=== PATIENT | female | born 1945 | race Hispanic/Latino ===

== ENCOUNTER 2018-02-15 14:12 | Observation (INO) | payer MEDICARE, BC ==
[2018-02-15] MEDS ORDERED: DiphenhydrAMINE 12.5 mg/5 ml LIQ UD (5 ml) ONE (14:33)
[2018-02-15] MEDS ORDERED: Sodium Chloride 0.9% 1,000 ML IV STA (14:34)
--- NOTE | 2018-02-15 14:44 | ED PDOC ---
HPI: General Adult Time Seen by Provider: 02/15/18 14:22 Chief Complaint (Nursing): Psychiatric Evaluation Chief Complaint (Provider): Screaming in pain History/Exam Limitations: clinical condition Onset/Duration Of Symptoms: Days (2) Additional Complaint(s): Per [facility], pt. sent to the ER for evaluation as she has been screaming for help and decreased appetite for 2 days. Unclear of pt. baseline. Pt. currently not providing any history. Only responds appropriately to some commands with 1 word answers. Pt. denies chest pain, dyspnea, back pain, headaches, neck pain. Has abd pain. States pain in the legs possibly at hips? . Past Medical History Reviewed: Nursing Documentation, Vital Signs Vital Signs: Last Vital Signs Temp 98 F 02/15/18 14:19 Pulse 71 02/15/18 14:19 Resp 18 02/15/18 14:19 BP 106/70 02/15/18 14:19 Pulse Ox 98 02/15/18 18:21 - Medical History PMH: Depression, HTN, Hypercholesterolemia Other PMH: Aortic aneursym and rupture - Family History Family History: States: Unknown Family Hx - Living Arrangements Living Arrangements: Prison/Assist Lv - Home Medications Home Medications: Ambulatory Orders Medication Instructions Recorded Acetaminophen [Tylenol 325mg tab] 650 mg PO Q6 PRN 02/15/18 Acidoph/L.bulg/Bif.b/S.thermop 2 tab PO BID 02/15/18 [Vicky-Bid Caplet] Aspirin [Adult Low Dose Aspirin EC] 81 mg PO DAILY 02/15/18 Atorvastatin [Lipitor] 10 mg PO HS 02/15/18 Bisacodyl [Dulcolax] 10 mg AZ DAILY PRN 02/15/18 Cholecalciferol 400 Intl Units 400 units PO DAILY 02/15/18 [Vitamin D 400 Intl Units Tab] Clopidogrel [Plavix] 75 mg PO DAILY 02/15/18 Diltiazem HCl [Cardizem] 30 mg PO Q6 02/15/18 Docusate [Colace] 100 mg PO BID 02/15/18 Famotidine [Pepcid] 20 mg PO BID 02/15/18 Lidocaine [Anecream] 1 applic TOP Q8 PRN 02/15/18 Magnesium Hydroxide [Milk of 30 ml PO DAILY PRN 02/15/18 Magnesia] Mirtazapine [Remeron] 15 mg PO HS 02/15/18 Risperidone [Risperdal] 0.25 mg PO BID 02/15/18 Sod Phos,M-B/Na Phos,Di-Ba [Fleet 118 ml AZ DAILY 02/15/18 Enema] clonazePAM [Klonopin] 0.25 mg PO Q12 02/15/18 guaiFENesin/Dextromethorphan 10 ml PO Q6 PRN 02/15/18 [Robitussin DM] levETIRAcetam [Keppra] 500 mg PO Q12 02/15/18 - Allergies Allergies/Adverse Reactions: Allergies Allergy/AdvReac Type Severity Reaction Status Date / Time latex Allergy RASH Verified 02/15/18 14:19 morphine Allergy RASH Verified 02/15/18 14:19 oxycodone Allergy RASH Verified 02/15/18 14:19 Review of Systems Review Of Systems: ROS cannot be obtained secondary to pt's inabilty to answer questions. Physical Exam - Reviewed Nursing Documentation Reviewed: Yes Vital Signs Reviewed: Yes - Physical Exam Appears: Positive for: No Acute Distress Head Exam: Positive for: ATRAUMATIC, NORMAL INSPECTION, NORMOCEPHALIC Skin: Positive for: Warm Eye Exam: Positive for: PERRL. Negative for: Periorbital swelling ENT: Positive for: Other (dry mouth). Negative for: Nasal Congestion, Tonsillar Exudate Neck: Positive for: Trachea Midline. Negative for: Normal (L neck with 7cm diameter echymotic area with minimal tenderness) Cardiovascular/Chest: Positive for: Regular Rate, Rhythm, Chest Non Tender. Negative for: Edema Respiratory: Positive for: Normal Breath Sounds. Negative for: Respiratory Distress Gastrointestinal/Abdominal: Positive for: Soft, Tenderness (diffuse), Other ( scattered echymotic spots (nontender)) Back: Positive for: Other (scattered echymotic spots (nontender)). Negative for : L CVA Tenderness, R CVA Tenderness Extremity: Positive for: Other (scattered echymotic spots (nontender) arms and legs; limited ROM as pt. with pain at the hips b/l) Neurologic/Psych: Positive for: Alert, Other (limited exam; answers only limited questions; follows limited commands) - Laboratory Results Result Diagrams: 02/15/18 14:55 02/15/18 14:55 Interpretation Of Abn Labs: 3.2 k, urine wbc Urine dip results: Positive for: Leukocyte Esterase, Nitrate - ECG ECG: Positive for: Interpreted By Me, Viewed By Me ECG Rhythm: Positive for: Atrial Fibrillation (unclear if old; rate controlled) O2 Sat by Pulse Oximetry: 98 Pulse Ox Interpretation: Normal - Radiology X-Ray: Read By Radiologist X-Ray Interpretation: No Acute Disease - CT Scan/US ct Other Rad Studies (CT/US): Read By Radiologist Other Rad Interpretation: cervical with few bubbles in epidural space - Progress ED Course And Treament: 1651: Does not meet sepsis criteria. Will give potassium and IV antibiotics for uti. 1829: Stable. Spoke with Dr. Josue about air in epidural. He reviewed images and aware of presentation. Nothing to do about findings. Possible from IV air bubble vs. trauma. Spoke with Dr. Langley. Will admit tele. Will give further orders when pt. reaches floor. IMPRESSION: There is a small amount of fluid adjacent to the aortic arch and pulmonary trunk nonspecific. Mild atelectasis/scarring changes right lung base with mild passive/dependent type atelectasis both lung bases. Status post endovascular repair large infrarenal abdominal aortic aneurysm as above. Large parapelvic cyst left kidney of with a exophytic cyst arising from the medial aspect midpole left kidney. Large right-sided extrarenal pelvis. Smaller right-sided renal cysts. Bilateral calcifications both collecting systems some of which may be vascular in origin. In situ G[employer] shunt tube. There is a small a right parasagittal ventral wall hernia containing fat. The distal end of the G[employer] EXEC[employer]IVE shunt tube also traverses the subcutaneous tissues and enters the peritoneal cavity at this level. There is a large lobulated soft tissue mass density within the pelvis that contains eccentric focal areas of air of uncertain etiology. Clinical correlation recommended. . Urinary bladder abuts this large lobulated soft tissue mass lesion and its relationship is difficult to determine due to significant streak and beam hardening artifact arising from bilateral total hip replacements. It is unclear within this lesion on arises from the uterus or there has been hysterectomy and again did streak limits cysts anatomic location. Follow-up of pelvic ultrasound is recommended further evaluation Findings discussed with Dr. Barrett at approximately 5:30 p.m. with written down and read back verification. US: Fibroids. Disposition - Clinical Impression Clinical Impression: UTI (urinary tract infection), Confused, Pelvic mass, Afib, Hypokalemia - Patient ED Disposition Is Patient to be Admitted: Yes - Disposition Disposition Time: 18:00 Condition: FAIR - Pt Status Changed To: Hospital Disposition Of: Inpatient - Admit Certification Admit to Inpatient:: After my assessment, the patient will require hospitalization for at least two midnights. This is because of the severity of symptoms shown, intensity of services needed, and/or the medical risk in this patient being treated as an outpatient. - POA Present On Arrival: Falls Or Trauma
[2018-02-15 14:59] LABS: VENOUS BLOOD GAS BASE EXCESS 0.8 mmol/L (0.0-2.0); VENOUS BLOOD GAS PCO2 34 mmHg (40-60); VENOUS BLOOD GAS PO2 48 mm/Hg (30-55); VENOUS BLOOD PH 7.46 (7.32-7.43)
[2018-02-15 15:09] LABS: EOS # 0.1 K/uL (0.0-0.7); EOS % 2.6 % (0.0-4.0); HEMOGLOBIN 12.5 g/dL (12.0-16.0); LYMPH # 1.5 K/uL (1.0-4.3); LYMPH % 30.4 % (20.0-40.0); MEAN CELL VOLUME 93.3 fl (81.0-99.0); MEAN CORPUSCULAR HEMOGLOBIN 30.7 pg (27.0-31.0); MEAN CORPUSCULAR HGB CONC 32.9 g/dL (33.0-37.0); MEAN PLATELET VOLUME 7.4 fl (7.2-11.7); MONO # 0.4 K/uL (0.0-0.8); NEUT # 2.7 K/uL (1.8-7.0); NRBC % 0.2 % (0.0-0.0); RBC 4.07 Mil/uL (3.80-5.20); RED CELL DISTRIBUTION WIDTH 17.2 % (11.5-14.5); WHITE BLOOD COUNT 4.8 K/uL (4.8-10.8)
[2018-02-15 15:16] LABS: ALB/GLOB RATIO 1.1 (1.0-2.1); ALBUMIN 3.6 g/dL (3.5-5.0); ALT/SGPT 33 U/L (9-52); AST/SGOT 17 U/L (14-36); BLOOD UREA NITROGEN 20 mg/dl (7-17); CALCIUM 9.1 mg/dL (8.4-10.2); GFR AFRICAN-AMERICAN > 60; GFR NON-AFRICAN AMERICAN > 60; HDL CHOLESTEROL 29 MG/DL (30-70)
[2018-02-15 15:26] LABS: INR 1.2 (0.9-1.2); LDL CHOLESTEROL 73 mg/dL (0-129); PROTHROMBIN TIME 12.8 Seconds (9.8-13.1)
[2018-02-15] MEDS ORDERED: Sodium Chloride 0.9% 100 ML ONE (15:59)
[2018-02-15] MEDS ORDERED: Iohexol 300 100 ML IJ ONE (15:59)
[2018-02-15 16:01] LABS: BARBITURATES, UR NEGATIVE (NEGATIVE); BENZODIAZEPINES, UR NEGATIVE (NEGATIVE); OPIATES, UR NEGATIVE (NEGATIVE); PHENCYCLIDINE, UR NEGATIVE (NEGATIVE)
--- NOTE | 2018-02-15 16:06 | RAD ---
HISTORY: Code Stroke COMPARISON: No prior. FINDINGS: LUNGS: No active pulmonary disease. PLEURA: No significant pleural effusion identified, no pneumothorax apparent. CARDIOVASCULAR: No radiographic findings to suggest acute or significant cardiovascular disease. Venous access catheter in satisfactory position. OSSEOUS STRUCTURES: No significant abnormalities. VISUALIZED UPPER ABDOMEN: Normal. OTHER FINDINGS: None. IMPRESSION: No active disease.
[2018-02-15 16:08] LABS: SQUAMOUS EPITHIAL 2 /hpf (0-5); URINE BACTERIA MANY (<OCC); URINE BILIRUBIN NEGATIVE (NEGATIVE); URINE BLOOD SMALL (NEGATIVE); URINE CLARITY CLOUDY (Clear); URINE COLOR AMBER (YELLOW); URINE GLUCOSE (UA) NEG (Normal); URINE LEUKOCYTE ESTERASE MOD Leu/uL (Negative); URINE PROTEIN 30 mg/dL (NEGATIVE); WBC CLUMPS MOD /hpf
[2018-02-15] MEDS ORDERED: Ciprofloxacin 400mg/200ml D5W 400 MG/200 ML BAG IV STA (16:51)
[2018-02-15] MEDS ORDERED: Potassium Chloride 20 mEq ER Tab PO STA (16:51)
--- NOTE | 2018-02-15 16:52 | CT ---
PROCEDURE: CT scan cervical spine dated 02/15/2018 HISTORY: Neck pain COMPARISON: No prior study available for comparison however correlation made with concurrent CT scan brain. TECHNIQUE: Axial computed tomography images were obtained of the cervical spine without the use of intravenous contrast. Coronal and sagittal reformatted images were created and reviewed. Radiation dose: Total exam DLP = 654.22 mGy-cm. This CT exam was performed using one or more of the following dose reduction techniques: Automated exposure control, adjustment of the mA and/or kV according to patient size, and/or use of iterative reconstruction technique. . FINDINGS: VERTEBRAE: No acute compression fractures no retropulsed fragments. . Minor chronic anterior stature loss of the C3 and C4 segments with what appears represent degenerative fusion of these 2 vertebral bodies. The remaining vertebral bodies otherwise exhibit normal stature. Minimal kyphosis centered at the C3-C4 level with straightening of the normal cervical lordosis above and below this level. Note made of several tiny bubbles of air within the anterior epidural space at the C1-C2 junction, findings of which are of uncertain etiology though differential diagnosis would include sequela of recent intravenous injection or possibly trauma. Clinical correlation recommended. DISCS/SPINAL CANAL/NEURAL FORAMINA: Multilevel degenerative spondylosis. At the C2-C3 level, there is mild posterior disc space narrowing. The neural disc herniation or significant disc bulge. Facet joints slightly hypertrophic. Central canal and exit foramina adequate. At the C3-C4 level, there is as mentioned above, the apparent degenerative fusion of the vertebral bodies with posterior ridging contiguous with mildly hypertrophic uncovertebral joints. Facets are hypertrophic. There is mild compressive effects on the ventral surface of the thecal sac possibly the spinal cord. The central canal mildly narrowed. Exit foramina are narrowed on the left and adequate to mildly narrowed on the right. At the C4-C5 level, there is disc space narrowing with cortical endplate irregularity and subchondral cystic changes. Small ridge disc complex contiguous with hypertrophic uncovertebral joints. Facets also hypertrophic. The changes result in mild central canal stenosis. Exit foramina are stenotic bilaterally. Similar changes seen at the C5-C6 level with disc space narrowing, cortical irregularity and subchondral cystic changes. Central canal is marginal to adequate. Exit foramina are narrowed bilaterally. At the C6-C7 level, there is disc space narrowing with endplate irregularity and subchondral cystic changes. Small disc ridge complex is present. The uncovertebral joints are mildly hypertrophic. Central canal appears adequate. Exit foramina appear adequate. PARASPINAL SOFT TISSUES: Unremarkable. OTHER FINDINGS: Incidental note made of an in situ right-sided SAND MILLER shunt tube which extends along the posterolateral subcutaneous tissues of the scalp right lateral aspect of the neck and anterior chest. Additionally, there is a rounded metallic density in the right parasellar region consistent with embolization coils presumably occluding an aneurysm in this location however clinical correlation with history recommended. IMPRESSION: No acute fractures. Multilevel degenerative spondylosis. Apparent degenerative fusion changes of the C3 and C4 vertebral body segments as above.
--- NOTE | 2018-02-15 16:54 | CT ---
PROCEDURE: CT HEAD WITHOUT CONTRAST. HISTORY: headache COMPARISON: None available. TECHNIQUE: Axial computed tomography images were obtained through the head/brain without intravenous contrast. Coronal and sagittal reconstructed images. Radiation dose: Total exam DLP = 942.86 mGy-cm. Elects on stop music Small infarct adjacent to the posterior horn of the right lateral ventricle. This CT exam was performed using one or more of the following dose reduction techniques: Automated exposure control, adjustment of the mA and/or kV according to patient size, and/or use of iterative reconstruction technique. FINDINGS: HEMORRHAGE: No intracranial hemorrhage. BRAIN: No mass effect or edema. Encephalomalacia change/postoperative findings right temporal lobe extending to the sella turcica region consistent with clipping of aneurysm. VENTRICLES: Ventriculostomy catheter identified in satisfactory position. CALVARIUM: Unremarkable. PARANASAL SINUSES: Unremarkable as visualized. No significant inflammatory changes. MASTOID AIR CELLS: Unremarkable as visualized. No inflammatory changes. OTHER FINDINGS: None. IMPRESSION: No acute intracranial abnormalities. No significant findings to account for the clinical presentation. Additional benign and/or incidental findings described above.
[2018-02-15] MEDS ORDERED: Ciprofloxacin 400mg/200ml D5W 400 MG/200 ML BAG IVPB ONE (17:06)
[2018-02-15] MEDS ORDERED: Potassium Chloride 20 mEq ER Tab PO ONE (17:06)
--- NOTE | 2018-02-15 17:39 | CT ---
PROCEDURE: CT scan chest abdomen pelvis 02/15/2018 HISTORY: Possible trauma with pain. COMPARISON: No prior study available for comparison. TECHNIQUE: IV dose administered: 90 cc Omnipaque 300 contrast material Radiation dose: Total exam DLP = 1498.16. MGy-cm. This CT exam was performed using one or more of the following dose reduction techniques: Automated exposure control, adjustment of the mA and/or kV according to patient size, and/or use of iterative reconstruction technique. . FINDINGS: CT CHEST WITH CONTRAST: LUNGS: Lung parenchyma demonstrates MEDIASTINUM: Heart size is mildly enlarged. There is a small amount of fluid seen adjacent to the ascending portion of the aortic arch and pulmonary trunk. . . The ascending thoracic aorta measures approximately 3.4 cm and descending thoracic aorta measures approximately 2.5 cm. Pulmonary trunk measures approximately 3.3 cm. LYMPH NODES: Few tiny nonspecific mediastinal lymph nodes. No significant hilar adenopathy PLEURA: Mild atelectasis/scarring changes seen in the right lung base extending to the posterior pleural surface. Minimal dependent/passive type atelectasis both lung bases. No evidence of effusion or pneumothorax. BONES: Mild multilevel degenerative spondylosis of the upper and mid thoracic spine with moderate degenerative spondylosis of the lower thoracic spine. OTHER FINDINGS: None. CT ABDOMEN AND PELVIS: LIVER: Liver exhibits normal size measuring approximately 14.4 cm. No obvious hepatic mass or collection. GALLBLADDER AND BILE DUCTS: Gallbladder is physiologically distended. No evidence of intraluminal gallbladder calculi. PANCREAS: Unremarkable. No gross lesion or ductal dilatation SPLEEN: Spleen exhibits normal size and attenuation pattern without masses collections or calcifications. ADRENALS: Enlarged adrenal glands bilaterally. KIDNEYS AND URETERS: . There are a few tiny cysts right kidney with large parapelvic left renal cyst. Right-sided extrarenal pelvis. The AC back however no VASCULATURE: Status post endovascular repair of a large infrarenal abdominal AA cortically aneurysm with stent graft extending inferiorly and bifurcating into both iliac arteries. Aneurysm appears thrombosed about the stent grafts measuring approximately 10 cm in length with maximum diameter estimated at approximately 6.3 x 6.0 cm measured on axial series 2, image number 223. BOWEL: Evaluation of the bowel is limited due to the lack of oral contrast material. Stomach is incompletely distended. Visualized loops of small bowel exhibit normal contour and caliber. No evidence of acute mechanical small bowel obstruction. Stool and air seen throughout the large bowel. Large amount of stool is present within the rectum and sigmoid consistent with fecal retention/ constipation. APPENDIX: Appendix not seen with certainty on this study. PERITONEUM: There is a large lobulated soft tissue mass density within the pelvis that contains internal areas of air. This lesion measures approximately 12.2cm t x 7.7cm ap x 8.9 cm cc. This lesion is of uncertain etiology. There is a small right parasagittal fat containing ventral wall hernia through which the distal end of the MACHINE [employer]AYER shunt tube enters the peritoneal cavity. Terminal end of the catheter is located in the right aspect of the pelvis. Note is made LYMPH NODES: Unremarkable. No enlarged lymph nodes. BLADDER: Urinary bladder is poorly seen due to significant streak and beam hardening artifact arising from bilateral hip replacements. . REPRODUCTIVE: Note that the pelvis is obscured by significant streak and beam hardening artifact arising from bilateral total hip replacements and therefore evaluation is limited. . BONES: Moderate multilevel degenerative spondylosis of the lumbar and lower thoracic spine OTHER FINDINGS: None. IMPRESSION: There is a small amount of fluid adjacent to the aortic arch and pulmonary trunk nonspecific. Mild atelectasis/scarring changes right lung base with mild passive/dependent type atelectasis both lung bases. Status post endovascular repair large infrarenal abdominal aortic aneurysm as above. Large parapelvic cyst left kidney of with a exophytic cyst arising from the medial aspect midpole left kidney. Large right-sided extrarenal pelvis. Smaller right-sided renal cysts. Bilateral calcifications both collecting systems some of which may be vascular in origin. In situ MACHINE SPR[employer]ER shunt tube. There is a small a right parasagittal ventral wall hernia containing fat. The distal end of the [employer] shunt tube also traverses the subcutaneous tissues and enters the peritoneal cavity at this level. There is a large lobulated soft tissue mass density within the pelvis that contains eccentric focal areas of air of uncertain etiology. Clinical correlation recommended. . Urinary bladder abuts this large lobulated soft tissue mass lesion and its relationship is difficult to determine due to significant streak and beam hardening artifact arising from bilateral total hip replacements. It is unclear within this lesion on arises from the uterus or there has been hysterectomy and again did streak limits cysts anatomic location. Follow-up of pelvic ultrasound is recommended further evaluation Findings discussed with Dr. Barrett at approximately 5:30 p.m. with written down and read back verification.
--- NOTE | 2018-02-15 19:03 | US ---
HISTORY: eval pelvic mass COMPARISON: February 15, 2018. CT abdomen and pelvis. Summary of findings on the comparison examination: There is a large lobulated soft tissue mass density within the pelvis that contains internal areas of air. This lesion measures approximately 12.2cm t x 7.7cm ap x 8.9 cm cc. This lesion is of uncertain etiology. TECHNIQUE: Transabdominal only. Real-time technique with 2D, duplex and color Doppler FINDINGS: UTERUS: Measures 6.2 x 9.5 x 12.8 cm. Enlarged, heterogeneous uterus. Incompletely visualized fibroid anterior and to the left of the midline measures 3.4 x 5.4 x 5.4 cm. ENDOMETRIUM: Not visualized CERVIX: No cervical abnormality identified. RIGHT OVARY: Not visualized LEFT OVARY: Not visualized FREE FLUID: No significant free fluid noted. OTHER FINDINGS: None. IMPRESSION: Enlarged and heterogeneous uterus with at least 1 large fibroid. This appears to correspond to the pelvic mass identified on recent CT scan. Limitations of the current examination: The study employed transabdominal technique only. The endometrial echo complex is not visualized nor are the adnexa.
[2018-02-15] MEDS ORDERED: Pneumococcal 23-Valent Vaccine IM ONE (22:00)
[2018-02-15] MEDS ORDERED: LIDOCAINE TOP PRN (22:01)
[2018-02-15] MEDS ORDERED: Magnesium Hydroxide Susp 30 ml UD PO PRN (22:01)
[2018-02-15] MEDS ORDERED: guaiFENesin DM 200 mg-20 mg/10 ml UD PO PRN (22:01)
[2018-02-15] MEDS ORDERED: Alum-Mag Hydrox-Simethicone Susp (30 mL) PO PRN (22:01)
[2018-02-15] MEDS ORDERED: Dextrose 5%/Lactated Ringer's 1,000 ML IV SCH (22:15)
[2018-02-16] MEDS: Ciprofloxacin 400mg/200ml D5W 400 MG/200 ML BAG IVPB SCH ×3 (05:00→21:25)
[2018-02-16 06:48] LABS: HEMOGLOBIN 12.2 g/dL (12.0-16.0); MEAN CELL VOLUME 96.1 fl (81.0-99.0); MEAN CORPUSCULAR HEMOGLOBIN 30.7 pg (27.0-31.0); RBC 3.97 Mil/uL (3.80-5.20); WHITE BLOOD COUNT 4.5 K/uL (4.8-10.8)
[2018-02-16 07:05] LABS: ALBUMIN 3.1 g/dL (3.5-5.0); ALT/SGPT 29 U/L (9-52); AST/SGOT 15 U/L (14-36); BLOOD UREA NITROGEN 15 mg/dl (7-17); CALCIUM 8.8 mg/dL (8.4-10.2); GFR AFRICAN-AMERICAN > 60; GFR NON-AFRICAN AMERICAN > 60
[2018-02-16] MEDS ORDERED: ACIDOPH PO SCH (09:00)
[2018-02-16] MEDS ORDERED: S THERMOP PO SCH (09:00)
[2018-02-16] MEDS ORDERED: BIF B PO SCH (09:00)
[2018-02-16] MEDS ORDERED: BULG PO SCH (09:00)
[2018-02-16] MEDS ORDERED: Cholecalciferol 400 Intl Units Tab PO SCH (09:00)
--- NOTE | 2018-02-16 09:57 | CP.PCM.HP ---
History of Present Illness - History of Present Illness History of Present Illness: History taken by medical records and some incomplete information taken from patient. 72 yo ,f, PMhx/o HTN, Depression, HLD is brought in from senior living for evaluation. Patient has been screaming for help and low appetite for the last 2 days. Patient unclear baseline, but family states she has been with agitation and confusion for the last 2 weeks. Patient seen bedside with Dr mcdaniel. Patient awake, alert, oriented x2(not place) c/o headache for the last 10 days and stomach pain. Patient asking for help to be out from hospital. She denies fever, n,v,d, abd pain now, chest pain, SOB, leg pain, dysuria . PMD: does not remember PMhx: HTN, Depression, HLD, Afib?, aortic aneurism rupture? Allergies: does not remember. By record latex, morphine, oxydodone. Psurghx: appendectomy Shx: +ETOH occs, Denies rect drugs. Former smoker, quit 2 months ago( as per patient) Present on Admission - Present on Admission Any Indicators Present on Admission: No History of DVT/PE: No History of Uncontrolled Diabetes: No Urinary Catheter: No Decubitus Ulcer Present: No Review of Systems - Review of Systems All systems: reviewed and no additional remarkable complaints except - Cardiovascular Cardiovascular: As Per HPI - Respiratory Respiratory: As Per HPI - Gastrointestinal Gastrointestinal: As Per HPI - Neurological Neurological: Confusion Additional comments: agitation - Psychiatric Psychiatric: Confusion Additional comments: agitation Past Patient History - Past Medical History & Family History Past Medical History?: Yes - Past Social History Smoking Status: Never Smoked - CARDIAC Hx Cardiac Disorders: Yes - PULMONARY Hx Respiratory Disorders: No - NEUROLOGICAL Hx Neurological Disorder: Yes - HEENT Hx HEENT Problems: No - RENAL Hx Chronic Kidney Disease: No - ENDOCRINE/METABOLIC Hx Endocrine Disorders: No - HEMATOLOGICAL/ONCOLOGICAL Hx Blood Disorders: No - INTEGUMENTARY Hx Dermatological Problems: No - MUSCULOSKELETAL/RHEUMATOLOGICAL Hx Musculoskeletal Disorders: Yes - GASTROINTESTINAL Hx Gastrointestinal Disorders: Yes Other/Comment: Abd Aortic Aneurysm - GENITOURINARY/GYNECOLOGICAL Hx Genitourinary Disorders: Yes Hx Incontinence: Yes - PSYCHIATRIC Hx Psychophysiologic Disorder: Yes - SURGICAL HISTORY Hx Surgeries: Yes Hx Abdominal Aortic Aneurysm Repair: Yes Other/Comment: VF shunt placement - ANESTHESIA Hx Anesthesia: Yes Hx Anesthesia Reactions: No Meds Home Medications: Home Medication List Medication Instructions Recorded Confirmed Type Ciprofloxacin HCl [Cipro] 500 mg PO Q12 #10 tablet 02/16/18 Rx Allergies/Adverse Reactions: Allergies Allergy/AdvReac Type Severity Reaction Status Date / Time latex Allergy RASH Verified 02/15/18 14:19 morphine Allergy RASH Verified 02/15/18 14:19 oxycodone Allergy RASH Verified 02/15/18 14:19 Physical Exam - Constitutional Appears: Non-toxic - Head Exam Head Exam: ATRAUMATIC, NORMOCEPHALIC - ENT Exam ENT Exam: Mucous Membranes Moist - Respiratory Exam Respiratory Exam: Clear to Auscultation Bilateral. absent: Rhonchi, Wheezes - Cardiovascular Exam Cardiovascular Exam: Irregular Rhythm, +S1, +S2 - GI/Abdominal Exam GI & Abdominal Exam: Normal Bowel Sounds, Soft. absent: Guarding - Extremities Exam Extremities exam: Positive for: normal inspection. Negative for: pedal edema - Neurological Exam Neurological exam: Alert, Oriented x3 - Psychiatric Exam Psychiatric exam: Agitated - Skin Skin Exam: Intact Results - Vital Signs Recent Vital Signs: Last Vital Signs Temp 98.4 F 02/16/18 08:33 Pulse 108 H 02/16/18 08:33 Resp 19 02/16/18 08:33 BP 170/100 H 02/16/18 08:33 Pulse Ox 96 02/16/18 08:33 - Labs Result Diagrams: 02/16/18 05:35 02/16/18 05:35 Labs: Laboratory Results - last 24 hr 02/15/18 02/15/18 02/15/18 14:44 14:55 14:55 WBC 4.8 RBC 4.07 Hgb 12.5 Hct 37.9 MCV 93.3 MCH 30.7 MCHC 32.9 L RDW 17.2 H Plt Count 297 MPV 7.4 Neut % (Auto) 57.0 Lymph % (Auto) 30.4 [place] % (Auto) 9.0 Eos % (Auto) 2.6 Baso % (Auto) 1.0 Neut # (Auto) 2.7 Lymph # (Auto) 1.5 [place] # (Auto) 0.4 Eos # (Auto) 0.1 Baso # (Auto) 0.0 PT INR APTT pO2 48 VBG pH 7.46 H VBG pCO2 34 L VBG HCO3 25.2 VBG Total CO2 25.2 VBG O2 Sat (Calc) 87.0 H VBG Base Excess 0.8 VBG Potassium 3.1 L Sodium 143.0 145 Chloride 113.0 H 110 H Glucose 106 H Lactate 1.2 FiO2 21.0 Potassium 3.2 L Carbon Dioxide 19 L Anion Gap 19 BUN 20 H Creatinine 0.6 L Est GFR ( Amer) > 60 Est GFR (Non-Af Amer) > 60 POC Glucose (mg/dL) Random Glucose 106 H Hemoglobin A1c Calcium 9.1 Total Bilirubin 1.0 AST 17 ALT 33 Alkaline Phosphatase 59 Troponin I < 0.0120 Total Protein 6.8 Albumin 3.6 Globulin 3.2 Albumin/Globulin Ratio 1.1 Triglycerides 150 H Cholesterol 132 LDL Cholesterol Direct 73 HDL Cholesterol 29 L Venous Blood Potassium 3.1 L Urine Color Urine Clarity Urine pH Ur Specific [place] Urine Protein Urine Glucose (UA) Urine Ketones Urine Blood Urine Nitrate Urine Bilirubin Urine Urobilinogen Ur Leukocyte Esterase Urine RBC (Auto) Urine WBC Clumps (Auto) Urine Microscopic WBC Ur Squamous Epith Cells Urine Bacteria Urine Opiates Screen Urine Methadone Screen Ur Barbiturates Screen Ur Phencyclidine Scrn Ur Amphetamines Screen U Benzodiazepines Scrn U Oth Cocaine Metabols U Cannabinoids Screen Alcohol, Quantitative < 10 Blood Type Antibody Screen BBK History Checked 02/15/18 02/15/18 02/15/18 14:55 14:55 14:55 WBC RBC Hgb Hct MCV MCH MCHC RDW Plt Count MPV Neut % (Auto) Lymph % (Auto) [place] % (Auto) Eos % (Auto) Baso % (Auto) Neut # (Auto) Lymph # (Auto) [place] # (Auto) Eos # (Auto) Baso # (Auto) PT 12.8 INR 1.2 APTT 32.0 pO2 VBG pH VBG pCO2 VBG HCO3 VBG Total CO2 VBG O2 Sat (Calc) VBG Base Excess VBG Potassium Sodium Chloride Glucose Lactate FiO2 Potassium Carbon Dioxide Anion Gap BUN Creatinine Est GFR ( Amer) Est GFR (Non-Af Amer) POC Glucose (mg/dL) Random Glucose Hemoglobin A1c 5.1 Calcium Total Bilirubin AST ALT Alkaline Phosphatase Troponin I Total Protein Albumin Globulin Albumin/Globulin Ratio Triglycerides Cholesterol LDL Cholesterol Direct HDL Cholesterol Venous Blood Potassium Urine Color Urine Clarity Urine pH Ur Specific [place] Urine Protein Urine Glucose (UA) Urine Ketones Urine Blood Urine Nitrate Urine Bilirubin Urine Urobilinogen Ur Leukocyte Esterase Urine RBC (Auto) Urine WBC Clumps (Auto) Urine Microscopic WBC Ur Squamous Epith Cells Urine Bacteria Urine Opiates Screen Urine Methadone Screen Ur Barbiturates Screen Ur Phencyclidine Scrn Ur Amphetamines Screen U Benzodiazepines Scrn U Oth Cocaine Metabols U Cannabinoids Screen Alcohol, Quantitative Blood Type O POSITIVE Antibody Screen Negative BBK History Checked No verified bt 02/15/18 02/15/18 02/15/18 14:56 15:15 15:15 WBC RBC Hgb Hct MCV MCH MCHC RDW Plt Count MPV Neut % (Auto) Lymph % (Auto) [place] % (Auto) Eos % (Auto) Baso % (Auto) Neut # (Auto) Lymph # (Auto) [place] # (Auto) Eos # (Auto) Baso # (Auto) PT INR APTT pO2 VBG pH VBG pCO2 VBG HCO3 VBG Total CO2 VBG O2 Sat (Calc) VBG Base Excess VBG Potassium Sodium Chloride Glucose Lactate FiO2 Potassium Carbon Dioxide Anion Gap BUN Creatinine Est GFR ( Amer) Est GFR (Non-Af Amer) POC Glucose (mg/dL) 100 Random Glucose Hemoglobin A1c Calcium Total Bilirubin AST ALT Alkaline Phosphatase Troponin I Total Protein Albumin Globulin Albumin/Globulin Ratio Triglycerides Cholesterol LDL Cholesterol Direct HDL Cholesterol Venous Blood Potassium Urine Color [place] Urine Clarity Cloudy Urine pH 5.0 Ur Specific [place] 1.026 Urine Protein 30 Urine Glucose (UA) Neg Urine Ketones Negative Urine Blood Small Urine Nitrate Negative Urine Bilirubin Negative Urine Urobilinogen 2.0 H Ur Leukocyte Esterase Mod Urine RBC (Auto) 11 H Urine WBC Clumps (Auto) Mod H Urine Microscopic WBC 122 H Ur Squamous Epith Cells 2 Urine Bacteria Many H Urine Opiates Screen Negative Urine Methadone Screen Negative Ur Barbiturates Screen Negative Ur Phencyclidine Scrn Negative Ur Amphetamines Screen Negative U Benzodiazepines Scrn Negative U Oth Cocaine Metabols Negative U Cannabinoids Screen Negative Alcohol, Quantitative Blood Type Antibody Screen BBK History Checked 02/16/18 02/16/18 05:35 05:35 WBC 4.5 L RBC 3.97 Hgb 12.2 Hct 38.1 MCV 96.1 D MCH 30.7 MCHC 32.0 L RDW 18.0 H Plt Count 243 MPV Neut % (Auto) Lymph % (Auto) [place] % (Auto) Eos % (Auto) Baso % (Auto) Neut # (Auto) Lymph # (Auto) [place] # (Auto) Eos # (Auto) Baso # (Auto) PT INR APTT pO2 VBG pH VBG pCO2 VBG HCO3 VBG Total CO2 VBG O2 Sat (Calc) VBG Base Excess VBG Potassium Sodium 144 Chloride 110 H Glucose Lactate FiO2 Potassium 3.6 Carbon Dioxide 21 L Anion Gap 17 BUN 15 Creatinine 0.5 L Est GFR ( Amer) > 60 Est GFR (Non-Af Amer) > 60 POC Glucose (mg/dL) Random Glucose 88 Hemoglobin A1c Calcium 8.8 Total Bilirubin 0.7 AST 15 ALT 29 Alkaline Phosphatase 54 Troponin I Total Protein 6.1 L Albumin 3.1 L Globulin 3.0 Albumin/Globulin Ratio 1.0 Triglycerides Cholesterol LDL Cholesterol Direct HDL Cholesterol Venous Blood Potassium Urine Color Urine Clarity Urine pH Ur Specific [place] Urine Protein Urine Glucose (UA) Urine Ketones Urine Blood Urine Nitrate Urine Bilirubin Urine Urobilinogen Ur Leukocyte Esterase Urine RBC (Auto) Urine WBC Clumps (Auto) Urine Microscopic WBC Ur Squamous Epith Cells Urine Bacteria Urine Opiates Screen Urine Methadone Screen Ur Barbiturates Screen Ur Phencyclidine Scrn Ur Amphetamines Screen U Benzodiazepines Scrn U Oth Cocaine Metabols U Cannabinoids Screen Alcohol, Quantitative Blood Type Antibody Screen BBK History Checked Assessment & Plan - Assessment and Plan (Free Text) Plan: Assessment/Plan 1) UTI UA: hematuria, leukocyturia, bacteriuria, leuk sterase + -Ciprofloxacin IV 400 mg Q12 h -f/u urine cx 2) Confusion Secondary to delirium from UTI vs dementia Head CT: no acute intracranial hemorrhage. No mass effect or edema. 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 Ventriculostomy catheter identified in satisfactory position. d/w Neurosurgery Dr Josue. Nothing to do. -Psyq consult appreciated: -Titrate Risperdal -Continue Remeron -Can continue Klonopin; would recommened to taper and stop if it is worsening mental status -discharge patient to psyq unit 3) uterine fibroid Pelvis US: enlarged and heterogeneous uterus with al least 1 large fibroid 3) Atrial fibrillation -unspecified if chronic or acute -EKG: Afib HR: 71 -c/w diltiazem, metoprolol 4) Hypokalemia -resolved K 3.6 5) HTN chronic -c/w diltiazem, metoprolol 6) Depression -On Remeron, Risperdal, klonopin -Psyq consult appreciated: -Titrate Risperdal -Continue Remeron -Can continue Klonopin; would recommened to taper and stop if it is worsening mental status -discharge patient to psyq unit 7) DVT prophylaxis -Lovenox 40 mg sc daily
--- NOTE | 2018-02-16 11:11 | CP.PCM.CON ---
History of Present Illness - History of Present Illness History of Present Illness: Psychiatry consult Patient is a poor historian due to dementia, therefore history had to be obtained from the chart. CC:Worsening behavioral disturbance HPI: 72 yo female sent from group home due to worsening behavioral disturbances, yelling spontanously and poor appetite. Patient is unable to engage in any coherent conversation at this time. A + O x 1. Denies depression /anxiety/AH/VH. PPHx: Unclear past psychiatric history; currently on Remeron, Risperdal and Klonopin PMHx: HTN, HLD, CAD, GERD, Seizure disorder (?) on Keppra; h/o aortic aneursym and rupture; current UTI ALL: Latex, Morphine, oxycodone MSE: A + O x 1, lethargic, minimally able to engage in interview Impression: 72 yo female presents w/ worsening behavioral disturbances in the context of UTI; which could be worsening mental status and behavioral issues. -Titrate Risperdal -Continue Remeron -Can continue Klonopin; would recommened to taper and stop if it is worsening mental status -If behavioral disturbances continue and patient has medical POA, patient would benefit from geriatric psychiatry admission once she is medically stable Past Patient History - Past Medical History & Family History Past Medical History?: Yes - Past Social History Smoking Status: Never Smoked - CARDIAC Hx Cardiac Disorders: Yes - PULMONARY Hx Respiratory Disorders: No - NEUROLOGICAL Hx Neurological Disorder: Yes - HEENT Hx HEENT Problems: No - RENAL Hx Chronic Kidney Disease: No - ENDOCRINE/METABOLIC Hx Endocrine Disorders: No - HEMATOLOGICAL/ONCOLOGICAL Hx Blood Disorders: No - INTEGUMENTARY Hx Dermatological Problems: No - MUSCULOSKELETAL/RHEUMATOLOGICAL Hx Musculoskeletal Disorders: Yes - GASTROINTESTINAL Hx Gastrointestinal Disorders: Yes Other/Comment: Abd Aortic Aneurysm - GENITOURINARY/GYNECOLOGICAL Hx Genitourinary Disorders: Yes Hx Incontinence: Yes - PSYCHIATRIC Hx Psychophysiologic Disorder: Yes - SURGICAL HISTORY Hx Surgeries: Yes Hx Abdominal Aortic Aneurysm Repair: Yes Other/Comment: VF shunt placement - ANESTHESIA Hx Anesthesia: Yes Hx Anesthesia Reactions: No Meds Allergies/Adverse Reactions: Allergies Allergy/AdvReac Type Severity Reaction Status Date / Time latex Allergy RASH Verified 02/15/18 14:19 morphine Allergy RASH Verified 02/15/18 14:19 oxycodone Allergy RASH Verified 02/15/18 14:19 - Medications Medications: Current Medications Acetaminophen (Tylenol 325mg Tab) 650 mg PO Q4 PRN PRN Reason: If temp is greater than 100 Al Hydrox/Mg Hydrox/Simethicone (Maalox Plus 30 Ml) 30 ml PO DAILY PRN PRN Reason: Indigestion Aspirin (Ecotrin) 81 mg PO DAILY [facility] Last Admin: 02/16/18 08:32 Dose: 81 mg Atorvastatin Calcium (Lipitor) 10 mg PO HS [facility] Bisacodyl (Dulcolax) 10 mg MT DAILY PRN PRN Reason: Constipation Clonazepam (Klonopin) 0.25 mg PO Q12 [facility] Last Admin: 02/16/18 08:32 Dose: 0.25 mg Clopidogrel Bisulfate (Plavix) 75 mg PO DAILY [facility] Last Admin: 02/16/18 08:33 Dose: 75 mg Diltiazem HCl (Cardizem) 30 mg PO Q6 [facility] Last Admin: 02/16/18 04:59 Dose: Not Given Docusate Sodium (Colace) 100 mg PO BID [facility] Last Admin: 02/16/18 08:31 Dose: 100 mg Famotidine (Pepcid) 20 mg PO BID [facility] Last Admin: 02/16/18 08:33 Dose: 20 mg Guaifenesin/Dextromethorphan (Robitussin Dm) 10 ml PO Q6 PRN PRN Reason: Cough Dextrose/Lactated Ringer's (Dextrose 5%/Lactated Ringer's) 1,000 mls @ 60 mls/ hr IV .[id number] [facility] Stop: 02/16/18 22:09 Last Admin: 02/15/18 22:56 Dose: 60 mls/hr Ciprofloxacin (Cipro 400mg/200ml Dsw) 400 mg in 200 mls @ 200 mls/hr IVPB Q12 [facility] PRN Reason: Protocol Last Admin: 02/16/18 08:31 Dose: 200 mls/hr Levetiracetam (Keppra) 500 mg PO Q12 [facility] Last Admin: 02/16/18 08:32 Dose: 500 mg Magnesium Hydroxide (Milk Of Magnesia) 30 ml PO DAILY PRN PRN Reason: Indigestion Meclizine HCl (Antivert) 12.5 mg PO Q12 PRN PRN Reason: Dizziness Last Admin: 02/16/18 08:33 Dose: 12.5 mg Metoprolol Tartrate (Lopressor) 50 mg PO Q12 [facility] Last Admin: 02/16/18 08:32 Dose: 50 mg Mirtazapine (Remeron) 15 mg PO HS [facility] Risperidone (Risperdal Tab) 0.25 mg PO BID [facility] Last Admin: 02/16/18 08:33 Dose: 0.25 mg Sodium Phosphate (Fleet Enema) 118 ml MT DAILY PRN PRN Reason: Constipation Vitamin D (Vitamin D 400 Intl Units Tab) 400 intlu PO DAILY [facility] Last Admin: 02/16/18 08:33 Dose: 400 intlu Results - Vital Signs Recent Vital Signs: Last Vital Signs Temp 98.4 F 02/16/18 09:00 Pulse 108 H 02/16/18 09:00 Resp 19 02/16/18 09:00 BP 170/92 H 02/16/18 09:00 Pulse Ox 96 02/16/18 09:00 - Labs Result Diagrams: 02/16/18 05:35 02/16/18 05:35 Labs: Laboratory Results - last 24 hr 02/15/18 02/15/18 02/15/18 14:44 14:55 14:55 WBC 4.8 RBC 4.07 Hgb 12.5 Hct 37.9 MCV 93.3 MCH 30.7 MCHC 32.9 L RDW 17.2 H Plt Count 297 MPV 7.4 Neut % (Auto) 57.0 Lymph % (Auto) 30.4 [place] % (Auto) 9.0 Eos % (Auto) 2.6 Baso % (Auto) 1.0 Neut # (Auto) 2.7 Lymph # (Auto) 1.5 [place] # (Auto) 0.4 Eos # (Auto) 0.1 Baso # (Auto) 0.0 PT INR APTT pO2 48 VBG pH 7.46 H VBG pCO2 34 L VBG HCO3 25.2 VBG Total CO2 25.2 VBG O2 Sat (Calc) 87.0 H VBG Base Excess 0.8 VBG Potassium 3.1 L Sodium 143.0 145 Chloride 113.0 H 110 H Glucose 106 H Lactate 1.2 FiO2 21.0 Potassium 3.2 L Carbon Dioxide 19 L Anion Gap 19 BUN 20 H Creatinine 0.6 L Est GFR ( Amer) > 60 Est GFR (Non-Af Amer) > 60 POC Glucose (mg/dL) Random Glucose 106 H Hemoglobin A1c Calcium 9.1 Total Bilirubin 1.0 AST 17 ALT 33 Alkaline Phosphatase 59 Troponin I < 0.0120 Total Protein 6.8 Albumin 3.6 Globulin 3.2 Albumin/Globulin Ratio 1.1 Triglycerides 150 H Cholesterol 132 LDL Cholesterol Direct 73 HDL Cholesterol 29 L Venous Blood Potassium 3.1 L Urine Color Urine Clarity Urine pH Ur Specific [place] Urine Protein Urine Glucose (UA) Urine Ketones Urine Blood Urine Nitrate Urine Bilirubin Urine Urobilinogen Ur Leukocyte Esterase Urine RBC (Auto) Urine WBC Clumps (Auto) Urine Microscopic WBC Ur Squamous Epith Cells Urine Bacteria Urine Opiates Screen Urine Methadone Screen Ur Barbiturates Screen Ur Phencyclidine Scrn Ur Amphetamines Screen U Benzodiazepines Scrn U Oth Cocaine Metabols U Cannabinoids Screen Alcohol, Quantitative < 10 Blood Type Antibody Screen BBK History Checked 02/15/18 02/15/18 02/15/18 14:55 14:55 14:55 WBC RBC Hgb Hct MCV MCH MCHC RDW Plt Count MPV Neut % (Auto) Lymph % (Auto) [place] % (Auto) Eos % (Auto) Baso % (Auto) Neut # (Auto) Lymph # (Auto) [place] # (Auto) Eos # (Auto) Baso # (Auto) PT 12.8 INR 1.2 APTT 32.0 pO2 VBG pH VBG pCO2 VBG HCO3 VBG Total CO2 VBG O2 Sat (Calc) VBG Base Excess VBG Potassium Sodium Chloride Glucose Lactate FiO2 Potassium Carbon Dioxide Anion Gap BUN Creatinine Est GFR ( Amer) Est GFR (Non-Af Amer) POC Glucose (mg/dL) Random Glucose Hemoglobin A1c 5.1 Calcium Total Bilirubin AST ALT Alkaline Phosphatase Troponin I Total Protein Albumin Globulin Albumin/Globulin Ratio Triglycerides Cholesterol LDL Cholesterol Direct HDL Cholesterol Venous Blood Potassium Urine Color Urine Clarity Urine pH Ur Specific [place] Urine Protein Urine Glucose (UA) Urine Ketones Urine Blood Urine Nitrate Urine Bilirubin Urine Urobilinogen Ur Leukocyte Esterase Urine RBC (Auto) Urine WBC Clumps (Auto) Urine Microscopic WBC Ur Squamous Epith Cells Urine Bacteria Urine Opiates Screen Urine Methadone Screen Ur Barbiturates Screen Ur Phencyclidine Scrn Ur Amphetamines Screen U Benzodiazepines Scrn U Oth Cocaine Metabols U Cannabinoids Screen Alcohol, Quantitative Blood Type O POSITIVE Antibody Screen Negative BBK History Checked No verified bt 02/15/18 02/15/18 02/15/18 14:56 15:15 15:15 WBC RBC Hgb Hct MCV MCH MCHC RDW Plt Count MPV Neut % (Auto) Lymph % (Auto) [place] % (Auto) Eos % (Auto) Baso % (Auto) Neut # (Auto) Lymph # (Auto) [place] # (Auto) Eos # (Auto) Baso # (Auto) PT INR APTT pO2 VBG pH VBG pCO2 VBG HCO3 VBG Total CO2 VBG O2 Sat (Calc) VBG Base Excess VBG Potassium Sodium Chloride Glucose Lactate FiO2 Potassium Carbon Dioxide Anion Gap BUN Creatinine Est GFR ( Amer) Est GFR (Non-Af Amer) POC Glucose (mg/dL) 100 Random Glucose Hemoglobin A1c Calcium Total Bilirubin AST ALT Alkaline Phosphatase Troponin I Total Protein Albumin Globulin Albumin/Globulin Ratio Triglycerides Cholesterol LDL Cholesterol Direct HDL Cholesterol Venous Blood Potassium Urine Color [place] Urine Clarity Cloudy Urine pH 5.0 Ur Specific [place] 1.026 Urine Protein 30 Urine Glucose (UA) Neg Urine Ketones Negative Urine Blood Small Urine Nitrate Negative Urine Bilirubin Negative Urine Urobilinogen 2.0 H Ur Leukocyte Esterase Mod Urine RBC (Auto) 11 H Urine WBC Clumps (Auto) Mod H Urine Microscopic WBC 122 H Ur Squamous Epith Cells 2 Urine Bacteria Many H Urine Opiates Screen Negative Urine Methadone Screen Negative Ur Barbiturates Screen Negative Ur Phencyclidine Scrn Negative Ur Amphetamines Screen Negative U Benzodiazepines Scrn Negative U Oth Cocaine Metabols Negative U Cannabinoids Screen Negative Alcohol, Quantitative Blood Type Antibody Screen BBK History Checked 02/16/18 02/16/18 05:35 05:35 WBC 4.5 L RBC 3.97 Hgb 12.2 Hct 38.1 MCV 96.1 D MCH 30.7 MCHC 32.0 L RDW 18.0 H Plt Count 243 MPV Neut % (Auto) Lymph % (Auto) [place] % (Auto) Eos % (Auto) Baso % (Auto) Neut # (Auto) Lymph # (Auto) [place] # (Auto) Eos # (Auto) Baso # (Auto) PT INR APTT pO2 VBG pH VBG pCO2 VBG HCO3 VBG Total CO2 VBG O2 Sat (Calc) VBG Base Excess VBG Potassium Sodium 144 Chloride 110 H Glucose Lactate FiO2 Potassium 3.6 Carbon Dioxide 21 L Anion Gap 17 BUN 15 Creatinine 0.5 L Est GFR ( Amer) > 60 Est GFR (Non-Af Amer) > 60 POC Glucose (mg/dL) Random Glucose 88 Hemoglobin A1c Calcium 8.8 Total Bilirubin 0.7 AST 15 ALT 29 Alkaline Phosphatase 54 Troponin I Total Protein 6.1 L Albumin 3.1 L Globulin 3.0 Albumin/Globulin Ratio 1.0 Triglycerides Cholesterol LDL Cholesterol Direct HDL Cholesterol Venous Blood Potassium Urine Color Urine Clarity Urine pH Ur Specific [place] Urine Protein Urine Glucose (UA) Urine Ketones Urine Blood Urine Nitrate Urine Bilirubin Urine Urobilinogen Ur Leukocyte Esterase Urine RBC (Auto) Urine WBC Clumps (Auto) Urine Microscopic WBC Ur Squamous Epith Cells Urine Bacteria Urine Opiates Screen Urine Methadone Screen Ur Barbiturates Screen Ur Phencyclidine Scrn Ur Amphetamines Screen U Benzodiazepines Scrn U Oth Cocaine Metabols U Cannabinoids Screen Alcohol, Quantitative Blood Type Antibody Screen BBK History Checked
[2018-02-16] MEDS ORDERED: Enoxaparin 40 mg Syringe SC SCH (14:15)
--- NOTE | 2018-02-16 18:45 | CARD ---
APPROVED REPORT EKG Measurement Heart [id number] <Conclusion> Atrial fibrillation Abnormal ECG
[2018-02-16 20:04] VITALS: TEMP 97.6
[2018-02-17 00:55] VITALS: BP 132/90; PULSE 71; RESP 18; O2SAT 99
== END 2018-02-17 00:15 ==
LOC: H.ER 14:12 → INTOOBSV 18:28 → H.ERHOLD 18:28 → H.TEL 20:50 → H.STEP 02-17 00:54 → H.TEL 02-17 00:54
PROVIDERS: ADMIT Family Medicine; ATTEND Family Medicine
DX: N39.0 Urinary tract infection, site not specified (principal); B96.20 Unspecified Escherichia coli [E. coli] as the cause of diseases classified elsewhere; E87.6 Hypokalemia; F03.91 Unspecified dementia, unspecified severity, with behavioral disturbance; F32.9 Major depressive disorder, single episode, unspecified; I48.91 Unspecified atrial fibrillation; I71.4 Abdominal aortic aneurysm, without rupture; I25.10 Atherosclerotic heart disease of native coronary artery without angina pectoris; I10 Essential (primary) hypertension; G40.909 Epilepsy, unspecified, not intractable, without status epilepticus; K21.9 Gastro-esophageal reflux disease without esophagitis; E78.5 Hyperlipidemia, unspecified; E78.00 Pure hypercholesterolemia, unspecified; D25.9 Leiomyoma of uterus, unspecified; G93.89 Other specified disorders of brain; Z23 Encounter for immunization; Z96.643 Presence of artificial hip joint, bilateral; Z98.2 Presence of cerebrospinal fluid drainage device; Z88.6 Allergy status to analgesic agent; Z91.040 Latex allergy status; Z79.02 Long term (current) use of antithrombotics/antiplatelets; Z79.82 Long term (current) use of aspirin; Z87.891 Personal history of nicotine dependence
CPT/HCPCS: 36415; 70450; 71045; 71260; 72125; 74177; 76856; 80053; 80061; 81003; 82803; 82948; 83036; 84484; 85025; 85027; 85610; 85730; 86850; 86900; 87040; 87086; 87181; 90732; 93005; 96361; 96365; 96366; 96372; 96375; 96376; 99285; G0009; G0378; G0480; J0744; J1650; J7040; J7120; Q9967

== ENCOUNTER 2018-02-17 00:25 | Inpatient (IN) | payer MEDICARE, BC ==
[2018-02-17 01:51] VITALS: BMI 27.3
[2018-02-17] MEDS ORDERED: Bismuth Subsalicylate 262 mg/15 ml Sus (240 ml) PO PRN (01:55)
[2018-02-17] MEDS ORDERED: Magnesium Hydroxide Susp 30 ml UD PO PRN (01:55)
[2018-02-17] MEDS ORDERED: Alum-Mag Hydrox-Simethicone Susp (30 mL) PO PRN (01:55)
--- NOTE | 2018-02-17 02:14 | PCM.BM ---
<Juan A Stafford - Last Filed: 02/17/18 02:12> Treatment Plan Problems - Problems identified on initial assessmt Delusions Date Initiated: 02/17/18 Time Initiated: 02:12 Assessment reference: NA Status: Active Priority: 1 Thought Process Date Initiated: 02/17/18 Time Initiated: 02:13 Assessment reference: NA Status: Active Priority: 2 Treatment assets and liabiliti Patient Assests: cooperative, good support system, negotiates basic needs Patient Liabilities: physical pain, medical problems, imparied memory - Milieu Protocol Maintain good personal hygiene: every shift Encourage regular showers, every shift Remind patient to perform daily oral care, every shift Assist patient to perform ADL's Maintain personal safety: daily Educate patient to report safety concerns to staff, daily Monitor environment for contraband/sharps Medication safety: Monitor for expected outcome, potential side effects: daily, Assess barriers to learning: daily, Assess readiness for medication education: daily <Margot Robert - Last Filed: 02/17/18 11:18> - Diagnosis (1) Dementia with behavioral disturbance Status: Acute Interventions: Medication management, Individual and group therapy, Psychoeducation 02/17/18 11:19 <Cira Griffiths - Last Filed: 02/19/18 12:28> Family Contact Family contact: Patient agrees to contact, Family has been contacted by patient , Telephone contact initiated by staff Family contact name: Berenice Verdin - daughter Family contacted how many times per week?: 2 Family contact comment: [phone] - Outside Agency [facility] involvment: Following patient during stay, Information-sharing Agency contact number: [phone] - Goals for Treatment Patient goals for treatment: Pt to be encouraged to attend activity and clinical groups 3-5x per week to decrease symptoms of paranoia, delusions and employ reality testing. Pt to be encouraged to participate in group milieu to develop coping skills to reduce psychiatric hospitalizations and further decompensation. Coordinate discharge resources needs by providing referral for psychiatric treatment follow up in the community. Discharge/Continuing Care - Education Needs Education Needs: Family Medication, Family Diagnosis/Disease Process, Family Coping Skills, Family Placement options, Family Community resources, Family Activities of Daily Living, Family Uses of Medical Equipment, Family Personal Hygiene/Grooming, Family Aftercare Safety Plan, Patient Medication, Patient Diagnosis/Disease Process, Patient Coping Skills, Patient Placement options, Patient Community resources, Patient Activities of Daily Living, Patient Uses of Medical Equipment, Patient Personal Hygiene/Grooming, Patient Aftercare Safety Plan - Discharge Discharge Criteria: Tolerates medication w/o severe side effects, Free of agitation, Normal sleep pattern, Ability to care for self, Reduction of target symptoms Discharge to:: Alf ([facility] [place], [place]) - Additional Comments 02/19/18 12:07 Pt discussed in team meeting. Pt unable to attend meeting due to disruptive bx' s and constantly calling out "help." Pt transferred from [facility]. 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 Pt was initially referred to [facility] for a psychiatric evaluation. Pt's medical and social issues reviewed and discussed. Pt's medications reviewed. Pt's tx plan reviewed. SW to contact daughterBerenice for further information and also for disposition. SW to contact sending facility for collateral information. Write will continue to follow case. - Treatment Team Participation Discussed with Family/SO: No Was Patient/Family/SO present at Treatment Team Meeting: Yes
[2018-02-17 07:01] LABS: IRON 58 ug/dL (37-170)
[2018-02-17 07:10] LABS: % IRON SATURATION 27 % (20-55); TOTAL IRON BINDING CAPACITY 218 ug/dL (250-450)
[2018-02-17 07:23] LABS: T4 9.6 ug/dl (5.5-11.0)
--- NOTE | 2018-02-17 11:18 | PCM.PSYCH ---
Initial Psychiatric Evaluation - Initial Psychiatric Evaluation Type of Admission: Voluntary Legal Status: DPOA Chief Complaint (in patient's own words): "HELP!!!!" Patient's Reaction to Hospitalization: HPI: 72 yo female w/ h/o HTN, HLD, CAD, GERD, Seizure disorder (?) on Keppra; h/ o aortic aneursym and rupture, was initially treated on the medical unit and found to have a UTI, now admitted to geriatric psychiatric unit for continued behavioral disturbances, episodes of yelling and poor appetite. Patient is unable to give any history due to severe dementia. Denies acute depression/AH/ VH. PPHx: Unclear past psychiatric history; currently on Remeron, Risperdal and Klonopin PMHx: HTN, HLD, CAD, GERD, Seizure disorder (?) on Keppra; h/o aortic aneursym and rupture; current UTI ALL: Latex, Morphine, oxycodone SHx: No current drug/etoh/cig; resides in a shelter; daughter has POA Current Medications: Active Medications Generic Name Dose Route Start Last Admin Trade Name Freq PRN Reason Stop Dose Admin Acetaminophen 650 mg 02/17/18 01:55 Tylenol 325mg Tab PO Q4 PRN Pain, moderate (4-7) Al Hydrox/Mg Hydrox/Simethicone 30 ml 02/17/18 01:55 Maalox Plus 30 Ml PO Q4 PRN Dyspepsia Bismuth Subsalicylate 524 mg 02/17/18 01:55 Pepto-Bismol PO Q4 PRN Diarrhea Lorazepam 0.5 mg 02/17/18 01:55 Ativan PO 03/03/18 01:56 HS PRN Insomnia Lorazepam 0.5 mg 02/17/18 01:55 02/17/18 07:53 Ativan PO 03/03/18 01:56 0.5 mg Q6 PRN Administration Anixety/Agitation Magnesium Hydroxide 30 ml 02/17/18 01:55 Milk Of Magnesia PO HS PRN Constipation Past Psychiatric History - Past Psychiatric History Pertinent Medical Hx (Current Medical&Sleep Prob, Allergies): Allergies Allergy/AdvReac Type Severity Reaction Status Date / Time latex Allergy RASH Verified 02/15/18 14:19 morphine Allergy RASH Verified 02/15/18 14:19 oxycodone Allergy RASH Verified 02/15/18 14:19 Acetaminophen [Tylenol 325mg tab] 650 mg PO Q6 PRN 02/15/18 Acidoph/L.bulg/Bif.b/S.thermop [Vicky-Bid Caplet] 2 tab PO BID 02/15/18 Aluminum Hydroxide/Magnesium [Maalox Plus 30 ml] 30 ml PO DAILY PRN 02/15/18 Aspirin [Adult Low Dose Aspirin EC] 81 mg PO DAILY 02/15/18 Atorvastatin [Lipitor] 10 mg PO HS 02/15/18 Bisacodyl [Dulcolax] 10 mg MD DAILY PRN 02/15/18 Cholecalciferol 400 Intl Units [Vitamin D 400 Intl Units Tab] 400 units PO DAILY 02/15/18 Clopidogrel [Plavix] 75 mg PO DAILY 02/15/18 Diltiazem HCl [Cardizem] 30 mg PO Q6 02/15/18 Docusate [Colace] 100 mg PO BID 02/15/18 Famotidine [Pepcid] 20 mg PO BID 02/15/18 Lidocaine [Anecream] 1 applic TOP Q8 PRN 02/15/18 Magnesium Hydroxide [Milk of Magnesia] 30 ml PO DAILY PRN 02/15/18 Meclizine [Antivert] 12.5 mg PO Q12 PRN 02/15/18 Metoprolol Tartrate [Lopressor] 50 mg PO Q12 02/15/18 Mirtazapine [Remeron] 15 mg PO HS 02/15/18 Risperidone [Risperdal] 0.25 mg PO BID 02/15/18 Sod Phos,M-B/Na Phos,Di-Ba [Fleet Enema] 118 ml MD DAILY 02/15/18 clonazePAM [Klonopin] 0.25 mg PO Q12 02/15/18 guaiFENesin/Dextromethorphan [Robitussin DM] 10 ml PO Q6 PRN 02/15/18 levETIRAcetam [Keppra] 500 mg PO Q12 02/15/18 Ciprofloxacin HCl [Cipro] 500 mg PO Q12 #10 tablet 02/16/18 Review of Systems - Neurological Neurological: Abnormal Gait, Confusion, Memory Loss - Psychiatric Psychiatric: Abnormal Sleep Pattern, Behavioral Changes, Change in Appetite, Confusion, Depression, Difficulty Concentrating, Irritability, Memory Loss, Mood Swings Mental Status Examination - Personal Presentation Personal Presentation: Looks stated age - Affect Affect: Other (Labile) - Motor Activity Motor Activity: Psychomotor Agitation - Reliability in Providing Information Reliability in Providing Information: Poor, due to cognitve impairment - Speech Speech: Disorganized, Tangential - Mood Mood: Anxious - Formal Thought Process Formal Thought Process: Loosening of associations - Hallucinations/Delusions Additional comments: Denies acute AH/VH/paranoia - Obsessions/Compulsions Obsessions: No Compulsions: No - Cognitive Functions Orientation: Person Sensorium: Alert Attention/Concentration: Easily distracted Judgement: Imparied, as evidence by: Poor judgement, Imparied, as evidence by: Lack of insight into illness Memory: Recent impaired, as evidence by: Inability to recall events of the day, Recent imparied as evidence by:Inability to complete 3/3 object recall, Remote impaired as evidenced by: Inability to recall sig life events, Remote impaired as evidenced by: Inability to recall historical events - Risk Risk: Diminished functioning - Strength & Assets Inventory Strength & Assets Inventory: Family support - Limitations Limitations: Decreased memory, recent DSM 5 DX - DSM 5 DSM 5 Diagnosis: Dementia with behavioral disturbances; Mood Disorder NOS - Recommended/Plan of Treatment Treatment Recommendations and Plan of Treatment: Dementia with behavioral disturbances; Mood Disorder NOS -Admit to geriatric psychiatry unit -Individual and group therapy -Continue Klonopin and Remeron -Increase Risperdal -Case discussed w/ daughter (POA) -Continue Cipro for UTI -Medicine consult -Disposition planning Projected ELOS: 5-10 days Discharge Plan and Discharge Criteria: Discharge when patient is psychiatrically stable - Smoking Cessation Smoking Cessation Initiated: No Reason for not providing: Not indicated
[2018-02-17] MEDS ORDERED: guaiFENesin DM 200 mg-20 mg/10 ml UD PO PRN (11:45)
--- NOTE | 2018-02-17 12:35 | CON ---
DATE: EDICAL CONSULTATION CHIEF COMPLAINT: Severe agitation. HISTORY OF PRESENT ILLNESS: This is a 72-year-old female known case of hypertension, elevated cholesterol, and dementia who was admitted to medical floor for severe screaming from questionable pain and after evaluation and noted acute condition on medical floor, the patient was transferred to Geropsych Unit after psychiatry consult suggestion for further management and optimization for the patient's behavioral problems. Medical consult was called for management of medical problem. The patient is a poor historian and review of systems and history of present illness is not really reliably available from this patient. REVIEW OF SYSTEMS: Whatever is available is negative for headache, dizziness, syncope, loss of consciousness, chest pain, shortness of breath, nausea, vomiting, diarrhea, constipation, any new joint or extremity pain. Nursing staff reports periods of agitation and screaming. Review of systems of all other organ system is unobtainable, unremarkable and as mentioned earlier unreliable. PAST MEDICAL HISTORY: Significant for hypertension, elevated cholesterol, and dementia. PAST SURGICAL HISTORY: Remarkable for aortic aneurysm. PERSONAL HISTORY: The patient is currently nonsmoker and nondrinker. No substance abuse. MEDICATIONS: The patient is on multiple medications, which is as per reconciliation sheet, which was reviewed. ALLERGIES: THE PATIENT IS NOT ALLERGIC TO ANY MEDICATIONS. FAMILY HISTORY: Noncontributory. PHYSICAL EXAMINATION: GENERAL: A well-built, well-nourished, 72-year-old female, in no acute distress. VITAL SIGNS: Temperature afebrile, pulse 80, respirations 18, and blood pressure 150/90. HEENT: Pupils are reactive to light. No JVD. No thyromegaly. No lymphadenopathy. No nystagmus. Normocephalic and atraumatic skull. HEART: S1 and S2, normal and regular. No significant murmur, gallop or rub is heard. LUNGS: Shows good bilateral air exchange. No rales or rhonchi. ABDOMEN: Soft and nontender. No organomegaly noted. Bowel sounds are plus and normal. EXTREMITIES: No edema. No calf swelling. No tenderness. No acute ischemia. CENTRAL NERVOUS SYSTEM: The patient is awake, responsive, and screaming. There is no sign of any acute gross focal, motor or sensory neurological deficits. DIAGNOSTIC DATA: Available diagnostic data reviewed. Previous hospitalization chart reviewed and labs and acceptable medical. ADMITTING IMPRESSION: A 72-year-old female with history of hypertension and elevated cholesterol, admitted to Geropsych Unit for agitation. Medical problem adequately controlled. Thanks for the consult. We will follow the patient with you. PLAN: As ordered. Melquiades Morrison MD
[2018-02-17] MEDS: Cholecalciferol 400 Intl Units Tab PO SCH (14:18)
[2018-02-17] MEDS: Risperidone M tab 0.5MG PO SCH (16:58)
[2018-02-18] MEDS: Cholecalciferol 400 Intl Units Tab PO SCH (08:37)
[2018-02-18] MEDS: Risperidone M tab 0.5MG PO SCH (08:38)
--- NOTE | 2018-02-18 10:55 | PN ---
DATE: 02/18/2018 SUBJECTIVE: The patient is seen and examined. Interim events noted. Psychiatric followup and intervention noted and appreciated. The patient remains in [facility]. Denies agitation, but seems to be better than before. Denies any specific medical complaints. No chest pain or shortness of breath. PHYSICAL EXAMINATION: GENERAL: The patient is in no acute distress. VITAL SIGNS: Stable. HEART: S1 and S2, normal and regular. LUNGS: Good bilateral air exchange. ABDOMEN: Soft and nontender. EXTREMITIES: No edema. No calf swelling. No tenderness. No acute ischemia. CENTRAL NERVOUS SYSTEM: Exam is essentially unchanged. DIAGNOSTIC DATA: Available diagnostic data reviewed. PLAN: Overall, the patient's general medical condition is stable. Plan as ordered. Melquiades Morrison MD
--- NOTE | 2018-02-18 11:32 | PCM.PYCHPN ---
Psychiatric Progress Note - Psychiatric Progress Note Patient seen today, length of contact: Patient evaluated, case discussed with team, chart reviewed Patient Chief Complaint: "HELP!!!!" Problems Identified/Issues Discussed: Patient continues to have behavioral disturbances and is now having VH of cows and monkeys. She yells spontaneously and needs redirection from staff. Medication Change: Yes (Increase Risperdal) Medical Record Reviewed: Yes Consults ordered or reviewed: Medicine consult Mental Status Examination - Cognitive Function Orientation: Person Memory: Impaired Attention: Poor Concentration: Poor Association: Loose Fund of Knowledge: Poor Decription of patient's judgement and insights: Poor I/J - Mood Mood: Anxious - Affect Affect: Other (Labile) - Speech Speech: Loud - Formal Thought Process Formal Thought Process: Hallucinations, Loosening of associations Psychotic Thoughts and Behaviors: +VH of cows and monkeys - Suicidal Ideation Suicidal Ideation: No Goal/Treatment Plan - Goal/Treatment Plan Need for Continued Stay: Discharge may exacerbated symptoms Progress Toward Problem(s) and Goals/Treatment Plan: Dementia with behavioral disturbances; Mood Disorder NOS -Individual and group therapy -Continue Klonopin and Remeron -Increase Risperdal -Case discussed w/ daughter (POA) -Continue Cipro for UTI -Medicine consult -Disposition planning Estimated Date of D/C: 02/23/18
[2018-02-18 12:14] LABS: FOLATE 10.8 ng/mL
[2018-02-18] MEDS: Risperidone M tab 1 MG PO SCH (16:18)
[2018-02-19] MEDS: Cholecalciferol 400 Intl Units Tab PO SCH (08:26)
[2018-02-19] MEDS: Risperidone M tab 0.5MG PO SCH (09:21)
--- NOTE | 2018-02-19 11:26 | PCM.PYCHPN ---
Psychiatric Progress Note - Psychiatric Progress Note Patient seen today, length of contact: Patient evaluated, case discussed with team, chart reviewed Patient Chief Complaint: "HELP!!!!" Problems Identified/Issues Discussed: Patient continues to have behavioral disturbances and episodes of yelling, some of which seems to be intentional behaviors to get attention. She denies current AH/VH/paranoia. Medication Change: Yes (Increase Klonopin) Medical Record Reviewed: Yes Consults ordered or reviewed: Medicine consult Mental Status Examination - Cognitive Function Orientation: Person Memory: Impaired Attention: Poor Concentration: Poor Association: Loose Fund of Knowledge: Poor Decription of patient's judgement and insights: Poor I/J - Mood Mood: Anxious - Affect Affect: Other (Labile) - Speech Speech: Loud - Formal Thought Process Formal Thought Process: Loosening of associations Psychotic Thoughts and Behaviors: No current AH/VH - Suicidal Ideation Suicidal Ideation: No - Homicidal Ideation Homicidal Ideation: No Goal/Treatment Plan - Goal/Treatment Plan Need for Continued Stay: Discharge may exacerbated symptoms Progress Toward Problem(s) and Goals/Treatment Plan: Dementia with behavioral disturbances; Mood Disorder NOS -Individual and group therapy -Continue Remeron and Risperdal -Increase Klonopin -Case discussed w/ daughter (POA) -Continue Cipro for UTI -Medicine consult -Disposition planning Estimated Date of D/C: 02/23/18
[2018-02-19 11:38] LABS: BASO % 1.2 % (0.0-2.0); EOS # 0.1 K/uL (0.0-0.7); EOS % 2.5 % (0.0-4.0); HEMOGLOBIN 12.9 g/dL (12.0-16.0); LYMPH # 1.1 K/uL (1.0-4.3); MEAN CELL VOLUME 93.7 fl (81.0-99.0); MEAN CORPUSCULAR HEMOGLOBIN 30.3 pg (27.0-31.0); MEAN CORPUSCULAR HGB CONC 32.4 g/dL (33.0-37.0); MONO # 0.4 K/uL (0.0-0.8); MONO % 9.6 % (0.0-10.0); NEUT # 2.5 K/uL (1.8-7.0); NEUT % 60.7 % (50.0-75.0); NRBC % 0.1 % (0.0-0.0); RBC 4.26 Mil/uL (3.80-5.20); RED CELL DISTRIBUTION WIDTH 16.9 % (11.5-14.5); WHITE BLOOD COUNT 4.2 K/uL (4.8-10.8)
[2018-02-19 11:57] LABS: ALB/GLOB RATIO 1.1 (1.0-2.1); ALBUMIN 3.8 g/dL (3.5-5.0); ALT/SGPT 30 U/L (9-52); AST/SGOT 32 U/L (14-36); BLOOD UREA NITROGEN 16 mg/dl (7-17); CALCIUM 9.1 mg/dL (8.4-10.2); GFR AFRICAN-AMERICAN > 60; GFR NON-AFRICAN AMERICAN > 60
[2018-02-19] MEDS: Risperidone M tab 1 MG PO SCH (17:42)
[2018-02-19 20:58] LABS: SQUAMOUS EPITHIAL 4 /hpf (0-5); URINE BACTERIA MANY (<OCC); URINE BILIRUBIN NEGATIVE (NEGATIVE); URINE BLOOD SMALL (NEGATIVE); URINE CLARITY CLOUDY (Clear); URINE COLOR YELLOW (YELLOW); URINE GLUCOSE (UA) NEG (Normal); URINE LEUKOCYTE ESTERASE LARGE Leu/uL (Negative); URINE PROTEIN NEGATIVE (NEGATIVE); URINE UROBILINOGEN 0.2-1.0 mg/dL (0.2-1.0)
[2018-02-20] MEDS: Cholecalciferol 400 Intl Units Tab PO SCH (08:46)
--- NOTE | 2018-02-20 09:43 | PCM.PYCHPN ---
Psychiatric Progress Note - Psychiatric Progress Note Patient seen today, length of contact: Patient evaluated, case discussed with team, chart reviewed Patient Chief Complaint: "HELP!!!!" Problems Identified/Issues Discussed: Patient continues to have periods of yelling and needs redirection from staff. She denies acute AH/VH/paranoia/delusions. No adverse effects to medications noted. Medication Change: Yes (Lower Risperdal) Medical Record Reviewed: Yes Consults ordered or reviewed: Medicine consult Mental Status Examination - Cognitive Function Orientation: Person Memory: Impaired Attention: Poor Concentration: Poor Association: Loose Fund of Knowledge: Poor Decription of patient's judgement and insights: Poor I/J - Mood Mood: Anxious - Affect Affect: Other (Labile) - Speech Speech: Loud - Formal Thought Process Formal Thought Process: Loosening of associations Psychotic Thoughts and Behaviors: No current AH/VH - Suicidal Ideation Suicidal Ideation: No - Homicidal Ideation Homicidal Ideation: No Goal/Treatment Plan - Goal/Treatment Plan Need for Continued Stay: Discharge may exacerbated symptoms Progress Toward Problem(s) and Goals/Treatment Plan: Dementia with behavioral disturbances; Mood Disorder NOS -Individual and group therapy -Continue Remeron -Lower Risperdal, patient denies active psychotic symptoms; will see if patient can tolerate lower doses without increase in behavioral issues -Continue Klonopin -Case discussed w/ daughter (POA) -Continue Cipro for UTI -Medicine consult -Disposition planning Estimated Date of D/C: 02/23/18
[2018-02-20 10:50] LABS: BLOOD UREA NITROGEN 16 mg/dl (7-17); CALCIUM 9.2 mg/dL (8.4-10.2); GFR AFRICAN-AMERICAN > 60; GFR NON-AFRICAN AMERICAN > 60
--- NOTE | 2018-02-20 10:52 | CP.PCM.PN ---
Subjective - Date & Time of Evaluation Date of Evaluation: 02/20/18 Time of Evaluation: 07:00 - Subjective Subjective: Patient seen and examined bedside with Dr Langley sitting on the chair. Patient reports not feeling well. Denies any pain, chest pain, SOB, dysuria.no overnight events. Urine cx results showed Ecoli resistant to cipro -Cipro stopped -Started on Bactrim 1 tab Q12h Objective - Vital Signs/Intake and Output Vital Signs (last 24 hours): Temp Pulse Resp BP Pulse Ox 97 F L 80 20 139/75 100 02/20/18 05:50 02/20/18 08:43 02/20/18 05:50 02/20/18 08:43 02/19/18 01:40 - Medications Medications: Current Medications Acetaminophen (Tylenol 325mg Tab) 650 mg PO Q4 PRN PRN Reason: Pain, moderate (4-7) Al Hydrox/Mg Hydrox/Simethicone (Maalox Plus 30 Ml) 30 ml PO Q4 PRN PRN Reason: Dyspepsia Aspirin (Ecotrin) 81 mg PO DAILY [facility] Last Admin: 02/20/18 08:42 Dose: 81 mg Atorvastatin Calcium (Lipitor) 10 mg PO HS [facility] Last Admin: 02/19/18 21:40 Dose: 10 mg Bisacodyl (Dulcolax) 10 mg GA DAILY PRN PRN Reason: Constipation Bismuth Subsalicylate (Pepto-Bismol) 524 mg PO Q4 PRN PRN Reason: Diarrhea Clonazepam (Klonopin) 0.5 mg PO BID [facility] Last Admin: 02/20/18 08:49 Dose: 0.5 mg Clopidogrel Bisulfate (Plavix) 75 mg PO DAILY [facility] Last Admin: 02/20/18 08:44 Dose: 75 mg Diltiazem HCl (Cardizem) 30 mg PO Q6 [facility] Last Admin: 02/20/18 05:46 Dose: Not Given Docusate Sodium (Colace) 100 mg PO BID [facility] Last Admin: 02/20/18 08:41 Dose: 100 mg Famotidine (Pepcid) 20 mg PO BID [facility] Last Admin: 02/20/18 08:44 Dose: 20 mg Guaifenesin/Dextromethorphan (Robitussin Dm) 10 ml PO Q6 PRN PRN Reason: Cough Levetiracetam (Keppra) 500 mg PO Q12 [facility] Last Admin: 02/20/18 08:43 Dose: 500 mg Lorazepam (Ativan) 0.5 mg PO HS PRN PRN Reason: Insomnia Stop: 03/03/18 01:56 Lorazepam (Ativan) 0.5 mg PO Q6 PRN PRN Reason: Anixety/Agitation Stop: 03/03/18 01:56 Last Admin: 02/18/18 16:22 Dose: 0.5 mg Magnesium Hydroxide (Milk Of Magnesia) 30 ml PO HS PRN PRN Reason: Constipation Meclizine HCl (Antivert) 12.5 mg PO Q12 PRN PRN Reason: Dizziness Metoprolol Tartrate (Lopressor) 50 mg PO Q12 [facility] Last Admin: 02/20/18 08:43 Dose: 50 mg Mirtazapine (Remeron) 15 mg PO HS [facility] Last Admin: 02/19/18 21:40 Dose: 15 mg Risperidone (Risperdal M-Tab) 0.5 mg PO BID [facility] Sodium Phosphate (Fleet Enema) 135 ml GA DAILY PRN PRN Reason: Constipation Trimethoprim/Sulfamethoxazole (Bactrim Ds Tab) 1 tab PO Q12 [facility] PRN Reason: Protocol Vitamin D (Vitamin D 400 Intl Units Tab) 400 intlu PO DAILY [facility] Last Admin: 02/20/18 08:46 Dose: 400 intlu - Labs Labs: 02/19/18 10:45 02/20/18 10:30 - Constitutional Appears: No Acute Distress - Head Exam Head Exam: ATRAUMATIC, NORMOCEPHALIC - Eye Exam Eye Exam: Normal appearance - ENT Exam ENT Exam: Mucous Membranes Moist - Respiratory Exam Respiratory Exam: Clear to Ausculation Bilateral. absent: Rales, Rhonchi, Wheezes, Stridor - Cardiovascular Exam Cardiovascular Exam: REGULAR RHYTHM, +S1, +S2 - GI/Abdominal Exam GI & Abdominal Exam: Soft, Normal Bowel Sounds. absent: Tenderness - Extremities Exam Extremities Exam: Normal Inspection. absent: Pedal Edema - Back Exam Back Exam: NORMAL INSPECTION - Neurological Exam Neurological Exam: Alert, Awake - Psychiatric Exam Psychiatric exam: Flat Affect - Skin Skin Exam: Intact Assessment and Plan - Assessment and Plan (Free Text) Plan: Assessment/Plan 1) UTI UA: hematuria, leukocyturia, bacteriuria, leuk sterase + -s/p ciprofloxacinCiprofloxacin IV 400 mg Q12 h -urine cx showed E coli resistant to Cipro. Cipro stopped -Start Bactrim Ds 1 tab BID 2) Confusion Secondary to delirium from UTI vs dementia Head CT: no acute intracranial hemorrhage. No mass effect or edema. 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 Ventriculostomy catheter identified in satisfactory position. d/w Neurosurgery Dr Josue. Nothing to do. -Psyq consult appreciated, c/w managmement in psyq unit 3) uterine fibroid Pelvis US: enlarged and heterogeneous uterus with al least 1 large fibroid -f/u outpatient 4) Atrial fibrillation -unspecified if chronic or acute -EKG: Afib HR: 71 -c/w diltiazem, metoprolol 5) Hypokalemia - K 3.5 -Kdur 10 mg 6) HTN chronic -c/w diltiazem, metoprolol 7) Depression -On Remeron, Risperdal, klonopin -Psyq consult appreciated 8) DVT prophylaxis -Lovenox 40 mg sc daily
[2018-02-20] MEDS ORDERED: Potassium Chloride 10 mEq ER Tab PO ONE (11:24)
[2018-02-20] MEDS: Risperidone M tab 0.5MG PO SCH (12:00)
[2018-02-20] MEDS: Enoxaparin 40 mg Syringe SC SCH (12:10)
[2018-02-20] MEDS ORDERED: Risperidone M tab 0.5MG PO SCH (17:00)
[2018-02-20] MEDS: Tmp-Smz 800 mg-160 mg DS Tab PO SCH ×2 (17:55→21:20)
[2018-02-21] MEDS: Tmp-Smz 800 mg-160 mg DS Tab PO SCH ×2 (08:37→21:07)
[2018-02-21] MEDS: Cholecalciferol 400 Intl Units Tab PO SCH (08:39)
[2018-02-21] MEDS: Enoxaparin 40 mg Syringe SC SCH (08:41)
[2018-02-21] MEDS: Risperidone M tab 0.5MG PO SCH ×3 (08:47→16:37)
--- NOTE | 2018-02-21 08:54 | PCM.PYCHPN ---
Psychiatric Progress Note - Psychiatric Progress Note Patient seen today, length of contact: Patient evaluated, case discussed with team, chart reviewed Patient Chief Complaint: "HELP!!!!" Problems Identified/Issues Discussed: Patient continues to have intermittent periods of yelling and needs redirection from staff. She denies acute AH/VH/paranoia/delusions. No adverse effects to medications noted. Medication Change: Yes (Increase Risperdal) Medical Record Reviewed: Yes Consults ordered or reviewed: Medicine consult Mental Status Examination - Cognitive Function Orientation: Person Memory: Impaired Attention: Poor Concentration: Poor Association: Loose Fund of Knowledge: Poor Decription of patient's judgement and insights: Poor I/J - Mood Mood: Anxious - Affect Affect: Other (Labile) - Speech Speech: Loud - Formal Thought Process Formal Thought Process: Loosening of associations Psychotic Thoughts and Behaviors: No current AH/VH - Suicidal Ideation Suicidal Ideation: No - Homicidal Ideation Homicidal Ideation: No Goal/Treatment Plan - Goal/Treatment Plan Need for Continued Stay: Discharge may exacerbated symptoms, Severe functional impairment Progress Toward Problem(s) and Goals/Treatment Plan: Dementia with behavioral disturbances; Mood Disorder NOS -Individual and group therapy -Continue Remeron -Increase Risperdal, patient continues to have behavioral issues -Continue Klonopin -Case discussed w/ daughter (POA) -Continue Cipro for UTI -Medicine consult -Disposition planning Estimated Date of D/C: 02/23/18
[2018-02-22] MEDS: Tmp-Smz 800 mg-160 mg DS Tab PO SCH ×2 (08:15→21:48)
[2018-02-22] MEDS: Enoxaparin 40 mg Syringe SC SCH (08:19)
[2018-02-22] MEDS: Risperidone M tab 0.5MG PO SCH ×3 (08:21→16:18)
[2018-02-22] MEDS: Cholecalciferol 400 Intl Units Tab PO SCH (08:21)
--- NOTE | 2018-02-22 09:24 | PCM.PYCHPN ---
Psychiatric Progress Note - Psychiatric Progress Note Patient seen today, length of contact: Patient evaluated, case discussed with team, chart reviewed Patient Chief Complaint: "HELP!!!!" Problems Identified/Issues Discussed: Patient continues to have intermittent periods of yelling and needs redirection from staff. The antibiotic was switched for her UTI. She denies acute AH/VH/ paranoia/delusions. No adverse effects to medications noted. Medication Change: No Medical Record Reviewed: Yes Consults ordered or reviewed: Medicine consult Mental Status Examination - Cognitive Function Orientation: Person Memory: Impaired Attention: Poor Concentration: Poor Association: Loose Fund of Knowledge: Poor Decription of patient's judgement and insights: Poor I/J - Mood Mood: Anxious - Affect Affect: Other (Labile) - Speech Speech: Loud - Formal Thought Process Formal Thought Process: Loosening of associations Psychotic Thoughts and Behaviors: No current AH/VH - Suicidal Ideation Suicidal Ideation: No - Homicidal Ideation Homicidal Ideation: No Goal/Treatment Plan - Goal/Treatment Plan Need for Continued Stay: Discharge may exacerbated symptoms, Severe functional impairment Progress Toward Problem(s) and Goals/Treatment Plan: Dementia with behavioral disturbances; Mood Disorder NOS -Individual and group therapy -Continue Remeron -Continue Risperdal -Continue Klonopin -Case discussed w/ daughter (POA) -Cipro stopped; patient now on Bactrim for UTI -Medicine consult -Disposition planning Estimated Date of D/C: 02/26/18
--- NOTE | 2018-02-23 09:57 | PCM.PYCHPN ---
Psychiatric Progress Note - Psychiatric Progress Note Patient seen today, length of contact: Patient evaluated, case discussed with team, chart reviewed Patient Chief Complaint: "I'm okay." Problems Identified/Issues Discussed: Patient is improving clinically. She has less episodes of yelling and has not needed PRN medications. She continues to be treated w/ Bactrim for her UTI. She denies acute AH/VH/paranoia/delusions. No adverse effects to medications noted. Medication Change: No Medical Record Reviewed: Yes Consults ordered or reviewed: Medicine consult Mental Status Examination - Cognitive Function Orientation: Person Memory: Impaired Attention: Poor Concentration: Poor Association: Loose Fund of Knowledge: Poor Decription of patient's judgement and insights: Poor I/J - Mood Mood: Neutral - Affect Affect: Constricted - Speech Speech: Appropriate - Formal Thought Process Formal Thought Process: Loosening of associations Psychotic Thoughts and Behaviors: No current AH/VH - Suicidal Ideation Suicidal Ideation: No - Homicidal Ideation Homicidal Ideation: No Goal/Treatment Plan - Goal/Treatment Plan Need for Continued Stay: Severe functional impairment Progress Toward Problem(s) and Goals/Treatment Plan: Dementia with behavioral disturbances; Mood Disorder NOS -Individual and group therapy -Continue Remeron -Continue Risperdal -Continue Klonopin -Case discussed w/ daughter (POA) -Continue Bactrim for UTI -Medicine consult -Disposition planning Estimated Date of D/C: 02/26/18
[2018-02-23] MEDS: Risperidone M tab 0.5MG PO SCH ×2 (10:35→16:36)
[2018-02-23] MEDS: Cholecalciferol 400 Intl Units Tab PO SCH (10:35)
[2018-02-23 10:49] LABS: BASO # 0.1 K/uL (0.0-0.2); BASO % 1.1 % (0.0-2.0); EOS # 0.1 K/uL (0.0-0.7); HEMOGLOBIN 12.9 g/dL (12.0-16.0); LYMPH # 2.1 K/uL (1.0-4.3); LYMPH % 37.9 % (20.0-40.0); MEAN CORPUSCULAR HGB CONC 32.6 g/dL (33.0-37.0); MONO # 0.9 K/uL (0.0-0.8); MONO % 16.6 % (0.0-10.0); NEUT # 2.4 K/uL (1.8-7.0); NEUT % 42.4 % (50.0-75.0); NRBC % 0.1 % (0.0-0.0); RBC 4.17 Mil/uL (3.80-5.20); RED CELL DISTRIBUTION WIDTH 17.7 % (11.5-14.5); WHITE BLOOD COUNT 5.6 K/uL (4.8-10.8)
[2018-02-23 11:14] LABS: ALB/GLOB RATIO 1.1 (1.0-2.1); ALBUMIN 3.5 g/dL (3.5-5.0); ALT/SGPT 24 U/L (9-52); AST/SGOT 14 U/L (14-36); BLOOD UREA NITROGEN 22 mg/dl (7-17); CALCIUM 9.4 mg/dL (8.4-10.2); GFR AFRICAN-AMERICAN > 60; GFR NON-AFRICAN AMERICAN > 60
[2018-02-23] MEDS ORDERED: Potassium Chloride 10 mEq ER Tab PO SCH (11:15)
[2018-02-23] MEDS: Enoxaparin 40 mg Syringe SC SCH (12:13)
[2018-02-23] MEDS: Tmp-Smz 800 mg-160 mg DS Tab PO SCH ×2 (12:13→21:12)
--- NOTE | 2018-02-23 13:02 | CP.PCM.PN ---
Subjective - Date & Time of Evaluation Date of Evaluation: 02/23/18 Time of Evaluation: 07:25 - Subjective Subjective: Patient seen and examined bedside with Dr Langley. Patient awake, somnolent, arousable. She denies fever, chest pain, SOB On bactrim for UTI notified of hypokelemia in old labs new labs for today K normal. Objective - Vital Signs/Intake and Output Vital Signs (last 24 hours): Temp Pulse Resp BP Pulse Ox 97.3 F L 84 19 125/64 97 02/23/18 06:00 02/23/18 06:00 02/23/18 06:00 02/23/18 06:00 02/22/18 21:49 - Medications Medications: Current Medications Acetaminophen (Tylenol 325mg Tab) 650 mg PO Q4 PRN PRN Reason: Pain, moderate (4-7) Last Admin: 02/21/18 12:50 Dose: 650 mg Al Hydrox/Mg Hydrox/Simethicone (Maalox Plus 30 Ml) 30 ml PO Q4 PRN PRN Reason: Dyspepsia Aspirin (Ecotrin) 81 mg PO DAILY [facility] Last Admin: 02/23/18 10:36 Dose: Not Given Atorvastatin Calcium (Lipitor) 10 mg PO HS [facility] Last Admin: 02/22/18 21:47 Dose: 10 mg Bisacodyl (Dulcolax) 10 mg VT DAILY PRN PRN Reason: Constipation Bismuth Subsalicylate (Pepto-Bismol) 524 mg PO Q4 PRN PRN Reason: Diarrhea Clonazepam (Klonopin) 0.25 mg PO BID [facility] Clopidogrel Bisulfate (Plavix) 75 mg PO DAILY [facility] Last Admin: 02/23/18 12:14 Dose: 75 mg Diltiazem HCl (Cardizem) 30 mg PO Q6 [facility] Last Admin: 02/23/18 10:40 Dose: Not Given Docusate Sodium (Colace) 100 mg PO BID [facility] Last Admin: 02/23/18 10:33 Dose: Not Given Enoxaparin Sodium (Lovenox) 40 mg SC DAILY [facility] PRN Reason: Protocol Last Admin: 02/23/18 12:13 Dose: 40 mg Famotidine (Pepcid) 20 mg PO BID [facility] Last Admin: 02/23/18 10:34 Dose: Not Given Guaifenesin/Dextromethorphan (Robitussin Dm) 10 ml PO Q6 PRN PRN Reason: Cough Levetiracetam (Keppra) 500 mg PO Q12 [facility] Last Admin: 02/23/18 12:14 Dose: 500 mg Lorazepam (Ativan) 0.5 mg PO HS PRN PRN Reason: Insomnia Stop: 03/03/18 01:56 Lorazepam (Ativan) 0.5 mg PO Q6 PRN PRN Reason: Anixety/Agitation Stop: 03/03/18 01:56 Last Admin: 02/21/18 23:00 Dose: 0.5 mg Magnesium Hydroxide (Milk Of Magnesia) 30 ml PO HS PRN PRN Reason: Constipation Meclizine HCl (Antivert) 12.5 mg PO Q12 PRN PRN Reason: Dizziness Last Admin: 02/21/18 08:37 Dose: 12.5 mg Metoprolol Tartrate (Lopressor) 50 mg PO Q12 [facility] Last Admin: 02/23/18 10:33 Dose: Not Given Mirtazapine (Remeron) 15 mg PO HS [facility] Last Admin: 02/22/18 21:48 Dose: 15 mg Risperidone (Risperdal M-Tab) 0.5 mg PO BID [facility] Sodium Phosphate (Fleet Enema) 135 ml VT DAILY PRN PRN Reason: Constipation Trimethoprim/Sulfamethoxazole (Bactrim Ds Tab) 1 tab PO Q12 [facility] PRN Reason: Protocol Last Admin: 02/23/18 12:13 Dose: 1 tab Vitamin D (Vitamin D 400 Intl Units Tab) 400 intlu PO DAILY [facility] Last Admin: 02/23/18 10:35 Dose: Not Given - Labs Labs: 02/23/18 10:30 02/23/18 10:30 - Constitutional Appears: Non-toxic, No Acute Distress - Head Exam Head Exam: ATRAUMATIC, NORMOCEPHALIC - Eye Exam Eye Exam: Normal appearance - ENT Exam ENT Exam: Mucous Membranes Moist - Neck Exam Neck Exam: Normal Inspection - Respiratory Exam Respiratory Exam: Clear to Ausculation Bilateral. absent: Rales, Rhonchi, Wheezes - Cardiovascular Exam Cardiovascular Exam: REGULAR RHYTHM, +S1, +S2 - GI/Abdominal Exam GI & Abdominal Exam: Soft, Normal Bowel Sounds. absent: Tenderness - Extremities Exam Extremities Exam: Normal Inspection - Neurological Exam Neurological Exam: Alert, Awake - Psychiatric Exam Psychiatric exam: Flat Affect - Skin Skin Exam: Intact Assessment and Plan - Assessment and Plan (Free Text) Plan: Assessment/Plan 1) UTI UA: hematuria, leukocyturia, bacteriuria, leuk sterase + -s/p ciprofloxacinCiprofloxacin IV 400 mg Q12 h -urine cx showed E coli resistant to Cipro. Cipro stopped -Bactrim Ds 1 tab BID day 3 2) Confusion Secondary to delirium from UTI vs dementia Head CT: no acute intracranial hemorrhage. No mass effect or edema. 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 Ventriculostomy catheter identified in satisfactory position. d/w Neurosurgery Dr Josue. Nothing to do. -Psyq consult appreciated, c/w managmement in psyq unit 3) uterine fibroid Pelvis US: enlarged and heterogeneous uterus with al least 1 large fibroid -f/u outpatient 4) Atrial fibrillation -unspecified if chronic or acute -EKG: Afib HR: 71 -c/w diltiazem, metoprolol 5) HTN chronic -c/w diltiazem, metoprolol 6) Depression -On Remeron, Risperdal, klonopin -Psyq consult appreciated 7) DVT prophylaxis -Lovenox 40 mg sc daily
[2018-02-23 21:14] VITALS: O2SAT 100
[2018-02-24 08:07] LABS: SQUAMOUS EPITHIAL < 1 /hpf (0-5); URINE BACTERIA RARE (<OCC); URINE BILIRUBIN NEGATIVE (NEGATIVE); URINE BLOOD NEGATIVE (NEGATIVE); URINE CLARITY SLIGHTY-CLOUDY (Clear); URINE COLOR AMBER (YELLOW); URINE GLUCOSE (UA) NEG (Normal); URINE LEUKOCYTE ESTERASE NEG Leu/uL (Negative); URINE PROTEIN NEGATIVE (NEGATIVE)
[2018-02-24] MEDS: Cholecalciferol 400 Intl Units Tab PO SCH (08:46)
[2018-02-24] MEDS: Tmp-Smz 800 mg-160 mg DS Tab PO SCH ×2 (08:46→21:05)
[2018-02-24] MEDS: Enoxaparin 40 mg Syringe SC SCH (08:48)
[2018-02-24] MEDS: Risperidone M tab 0.5MG PO SCH ×2 (08:51→16:38)
--- NOTE | 2018-02-24 11:11 | PCM.PYCHPN ---
Psychiatric Progress Note - Psychiatric Progress Note Patient seen today, length of contact: Patient evaluated, case discussed with team, chart reviewed Patient Chief Complaint: pt is less agitated and not yelling anymore and tolerating meds with no side effects, Medication Change: No Medical Record Reviewed: Yes Mental Status Examination - Cognitive Function Orientation: Person Memory: Impaired Attention: Poor Concentration: Poor Association: Loose Fund of Knowledge: Poor - Mood Mood: Neutral - Affect Affect: Constricted - Speech Speech: Appropriate - Formal Thought Process Formal Thought Process: Loosening of associations - Suicidal Ideation Suicidal Ideation: No - Homicidal Ideation Homicidal Ideation: No Goal/Treatment Plan - Goal/Treatment Plan Need for Continued Stay: Severe functional impairment Progress Toward Problem(s) and Goals/Treatment Plan: Will continue to stabilize with meds and d/c plans as per dr lozoya Estimated Date of D/C: 02/26/18
[2018-02-25] MEDS: Tmp-Smz 800 mg-160 mg DS Tab PO SCH (09:02)
[2018-02-25] MEDS: Enoxaparin 40 mg Syringe SC SCH (09:05)
[2018-02-25] MEDS: Cholecalciferol 400 Intl Units Tab PO SCH (09:07)
[2018-02-25] MEDS: Risperidone M tab 0.5MG PO SCH ×2 (09:16→17:09)
--- NOTE | 2018-02-25 09:50 | PN ---
DATE: 02/25/2018 SUBJECTIVE: The patient is seen and examined. Interim events noted. The patient remains in [facility]. The patient is sleepy and arousable, not able to provide informative history or review of systems. According to nursing staff, the patient has four episodes of diarrhea. No other symptoms are reported. No abdominal pain. PHYSICAL EXAMINATION: GENERAL: The patient is in no acute distress. VITAL SIGNS: Stable. HEART: S1 and S2, normal and regular. LUNGS: Good bilateral air exchange. ABDOMEN: Soft and nontender. No sign of acute abdomen. No guarding, no rigidity, no rebound. Bowel sounds are plus and normal. EXTREMITIES: No edema, no calf swelling. No tenderness. No acute ischemia. CENTRAL NERVOUS SYSTEM: Essentially unchanged. DIAGNOSTIC DATA: Available diagnostic data reviewed. PLAN: Overall, the patient's general medical condition is stable. Does have symptoms of diarrhea reported by nursing staff. Plan as ordered. Melquiades Morrison MD
[2018-02-25 17:09] VITALS: RESP 18
--- NOTE | 2018-02-25 17:10 | PCM.PYCHPN ---
Psychiatric Progress Note - Psychiatric Progress Note Patient seen today, length of contact: Patient evaluated, case discussed with team, chart reviewed Patient Chief Complaint: pt has been in better behavioral control and not yelling anymore and tolerating meds with no side effects, Medication Change: No Medical Record Reviewed: Yes Mental Status Examination - Cognitive Function Orientation: Person Memory: Impaired Attention: Poor Concentration: Poor Association: Loose Fund of Knowledge: Poor - Mood Mood: Neutral - Affect Affect: Constricted - Speech Speech: Appropriate - Formal Thought Process Formal Thought Process: Loosening of associations - Suicidal Ideation Suicidal Ideation: No - Homicidal Ideation Homicidal Ideation: No Goal/Treatment Plan - Goal/Treatment Plan Need for Continued Stay: Remain at risks for inpatient hospitalization, Severe functional impairment Progress Toward Problem(s) and Goals/Treatment Plan: Will continue to stabilize with meds and d/c plans as per dr lozoya Estimated Date of D/C: 02/26/18
[2018-02-26 06:23] VITALS: TEMP 97.8
[2018-02-26] MEDS: Cholecalciferol 400 Intl Units Tab PO SCH (08:44)
--- NOTE | 2018-02-26 08:49 | PCM.PYCHDC ---
Mental Status Examination - Mental Status Examination Orientation: Person Memory: Impaired (Chronic memory, attention, Concentration, Association, Knowledge deficits due to dementia) Mood: Neutral Affect: Broad Speech: Appropriate Attention: Poor Concentration: Poor Association: Loose Fund of Knowledge: Poor Formal Thought Process: Loosening of associations Description of patient's judgement and insight: Poor I/J due to chronic dementia Psychotic Thoughts and Behaviors: No AH/VH/paranoia/delusions Suicidal Ideation: No Current Homicidal Ideation?: No Discharge Summary - Discharge Note Reason for Hospitalization: HPI: 72 yo female w/ h/o HTN, HLD, CAD, GERD, Seizure disorder (?) on Keppra; h/ o aortic aneursym and rupture, was initially treated on the medical unit and found to have a UTI, now admitted to geriatric psychiatric unit for continued behavioral disturbances, episodes of yelling and poor appetite. Patient is unable to give any history due to severe dementia. Denies acute depression/AH/ VH. PPHx: Unclear past psychiatric history; currently on Remeron, Risperdal and Klonopin PMHx: HTN, HLD, CAD, GERD, Seizure disorder (?) on Keppra; h/o aortic aneursym and rupture; current UTI ALL: Latex, Morphine, oxycodone SHx: No current drug/etoh/cig; resides in a skilled nursing; daughter has POA Laboratory Data: Abnormal Lab Results 02/25/18 Unknown C. difficile Ag & Toxin Negative Consultations:: List each consultation separately and include: 1. Reason for request. 2. Findings. 3. Follow-up Consultations: Medicine consult Summary of Hospital Course include:: 1. Description of specific treatment plan utilized for patients during their course of treatmen. 2. Summarize the time- course for resolution of acute symptoms and/or regressed behaviors. 3. Describe issues identified and worked on during hospitalization. 4. Describe medication utilized. 5. Describe medical problems identified and treated. 6. Reassessment of suicide risk Summary of Hospital Course: Patient was admitted to the geriatric psychiatry unit. Individual and group therapy were provided. Psychoeducation provided to the patient's family re: chronic dementia. Patient was stabilized on Klonopin, Remeron and Risperdal. She was treated w/ Bactrim for a UTI. She is currently at her baseline of functioning and is psychiatrically stable for discharge. - Diagnosis (1) Dementia with behavioral disturbance Current Visit: Yes Status: Chronic - Final Diagnosis (DSM 5) Condition upon Discharge: STABLE DSM 5: Dementia w/ behavioral disturbances; Mood disorder NOS Disposition: TRANSF TO SNF Follow-up Treatment Plan: Dementia with behavioral disturbances; Mood Disorder NOS; patient is psychiatrically stable for discharge back to skilled nursing -Individual and group therapy -Continue Remeron 15 mg PO HS -Continue Risperdal 0.5 mg PO BID -Continue Klonopin 0.25 mg PO BID -Case discussed w/ daughter (POA) -Bactrim course completed for UTI -Medicine consult - Smoking Cessation Smoking Cessation Medication prescribed: No Reason for not providing: Not indicated - Antipsychotic Medications Pt discharged on 2 or more routine antipsychotic medications: No
[2018-02-26 08:59] VITALS: BP 116/54; PULSE 78
--- NOTE | 2018-02-26 09:09 | PN ---
DATE: 02/26/2018 MEDICAL FOLLOWUP PROGRESS NOTE SUBJECTIVE: The patient is seen and examined. Interim events noted. Psychiatric followup and interventions noted and appreciated. The patient remains in [facility], awake and responsive. Denies any specific complaints. No chest pain. No shortness of breath. PHYSICAL EXAMINATION: GENERAL: The patient is in no acute distress. VITAL SIGNS: Stable. HEART: S1 and S2, normal and regular. LUNGS: Good bilateral air exchange. ABDOMEN: Soft and nontender. EXTREMITIES: No edema. No calf swelling. No tenderness. No acute ischemia. CENTRAL NERVOUS SYSTEM: Essentially unchanged. DIAGNOSTIC DATA: Available diagnostic data reviewed. PLAN: Overall, the patient's general medical condition is stable. Requesting . Plan as ordered. Melquiades Morrison MD
[2018-02-26] MEDS: Risperidone M tab 0.5MG PO SCH (11:17)
--- NOTE | 2018-02-26 12:20 | PCM.BM ---
Treatment Plan Problems - Problems identified on initial assessmt Delusions Date Initiated: 02/17/18 Time Initiated: 02:12 Assessment reference: NA Status: Active Priority: 1 Thought Process Date Initiated: 02/17/18 Time Initiated: 02:13 Assessment reference: NA Status: Active Priority: 2 Treatment assets and liabiliti Patient Assests: cooperative, good support system, negotiates basic needs Patient Liabilities: physical pain, medical problems, imparied memory - Milieu Protocol Maintain good personal hygiene: every shift Encourage regular showers, every shift Remind patient to perform daily oral care, every shift Assist patient to perform ADL's Maintain personal safety: daily Educate patient to report safety concerns to staff, daily Monitor environment for contraband/sharps Medication safety: Monitor for expected outcome, potential side effects: daily, Assess barriers to learning: daily, Assess readiness for medication education: daily Milieu Narrative: Dementia with behavioral disturbances; Mood Disorder NOS; patient is psychiatrically stable for discharge back to detention -Individual and group therapy -Continue Remeron 15 mg PO HS -Continue Risperdal 0.5 mg PO BID -Continue Klonopin 0.25 mg PO BID -Case discussed w/ daughter (POA) -Bactrim course completed for UTI -Medicine consult Family Contact Family contact: Patient agrees to contact, Family has been contacted by patient , Telephone contact initiated by staff Family contact name: Berenice Verdin - daughter Family contacted how many times per week?: 2 Family contact comment: [phone] - Outside Agency [facility] involvment: Following patient during stay, Information-sharing Agency contact number: [phone] - Goals for Treatment Patient goals for treatment: Pt to be encouraged to attend activity and clinical groups 3-5x per week to decrease symptoms of paranoia, delusions and employ reality testing. Pt to be encouraged to participate in group milieu to develop coping skills to reduce psychiatric hospitalizations and further decompensation. Coordinate discharge resources needs by providing referral for psychiatric treatment follow up in the community. Discharge/Continuing Care - Education Needs Education Needs: Family Medication, Family Diagnosis/Disease Process, Family Coping Skills, Family Placement options, Family Community resources, Family Activities of Daily Living, Family Uses of Medical Equipment, Family Personal Hygiene/Grooming, Family Aftercare Safety Plan, Patient Medication, Patient Diagnosis/Disease Process, Patient Coping Skills, Patient Placement options, Patient Community resources, Patient Activities of Daily Living, Patient Uses of Medical Equipment, Patient Personal Hygiene/Grooming, Patient Aftercare Safety Plan - Discharge Discharge Criteria: Tolerates medication w/o severe side effects, Free of agitation, Normal sleep pattern, Ability to care for self, Reduction of target symptoms Discharge to:: [facility] ([facility] [place], [place]) - Additional Comments 02/19/18 12:07 Pt discussed in team meeting. Pt unable to attend meeting due to disruptive bx' s and constantly calling out "help." Pt transferred from [facility]. 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 Pt was initially referred to [facility] for a psychiatric evaluation. Pt's medical and social issues reviewed and discussed. Pt's medications reviewed. Pt's tx plan reviewed. SW to contact daughterBerenice for further information and also for disposition. SW to contact sending facility for collateral information. Write will continue to follow case. - Treatment Team Participation Patient/Family/SO Statement: Dementia with behavioral disturbances; Mood Disorder NOS; patient is psychiatrically stable for discharge back to detention -Individual and group therapy -Continue Remeron 15 mg PO HS -Continue Risperdal 0.5 mg PO BID -Continue Klonopin 0.25 mg PO BID -Case discussed w/ daughter (POA) -Bactrim course completed for UTI -Medicine consult Discussed with Family/SO: No Was Patient/Family/SO present at Treatment Team Meeting: Yes Treatment Plan Review Patient participation: No (Pt observed to be resting in bed) Family/SO/Caregiver participation: No Additional Comments: Pt discussed in team meeting. Pt's progress and bx on the unit reviewed. Pt is less agitated and irritable. Pt is screaming and yelling "help" less. Pt is more re-directable. Pt compliant with medications. Pt scheduled to return to accepting LTC facility, [facility] [place]. Pt's family aware of return to LTC facility and agreeable with discharge. - Problem Delusions Date Initiated: 02/17/18 Time Initiated: 02:12 Progress toward outcomes: improved Thought Process Date Initiated: 02/17/18 Time Initiated: 02:13 Progress toward outcomes: unchanged (Pt reains confused and disoriented. Pt's short term memory is poor.) - Discharge / Continuing Care Discharge to:: [facility] Facility (Pt returning to [facility] [place] , [facility]) Behavioral Health Services: Other (Medication management) Health Needs: Follow up care/test, Doctor appointments, Special equipment, Nutritional, Medications/Rx
== END 2018-02-26 13:30 | DRG 884 ==
LOC: H.STEP 00:25
PROVIDERS: ADMIT Psychiatry & Neurology Psychiatry; ATTEND Psychiatry & Neurology Psychiatry
PROC: GZ51ZZZ Individual Psychotherapy, Behavioral (ICD-10-PCS; principal; 2018-02-17)
DX: F03.91 Unspecified dementia, unspecified severity, with behavioral disturbance (principal); N39.0 Urinary tract infection, site not specified; F32.9 Major depressive disorder, single episode, unspecified; E78.5 Hyperlipidemia, unspecified; G93.89 Other specified disorders of brain; I10 Essential (primary) hypertension; I25.10 Atherosclerotic heart disease of native coronary artery without angina pectoris; I48.91 Unspecified atrial fibrillation; K21.9 Gastro-esophageal reflux disease without esophagitis; R31.9 Hematuria, unspecified; D25.9 Leiomyoma of uterus, unspecified; E78.00 Pure hypercholesterolemia, unspecified; E87.6 Hypokalemia